=== PATIENT | female | born 1975 | race Two or more races ===

== ENCOUNTER 2016-04-13 10:56 | Emergency (ER) | payer OTHER ==
[2016-04-13 11:24] VITALS: BP 137/71
[2016-04-13] MEDS ORDERED: Ketorolac INJ* 30 MG/ML 1 ML VIAL IV PUSH ONE (11:52)
--- NOTE | 2016-04-13 12:50 | RAD ---
CLINICAL HISTORY: Low back pain with dysuria, left-sided radiculopathy COMPARISON: None TECHNIQUE: Multiple contiguous axial CT scans were obtained of the abdomen and pelvis, without intravenous contrast enhancement. Coronal and sagittal multiplanar reformations are submitted for review. Oral contrast was not administered. FINDINGS: The study is limited by the lack of intravenous contrast. This limits evaluation of the solid organs and vasculature. LUNG BASES: The lung bases are clear. LIVER: The liver is normal in shape, size, contour, and attenuation. BILE DUCTS: There is no intrahepatic or extrahepatic biliary dilatation. GALLBLADDER: The gallbladder is normal, without pericholecystic inflammatory change. PANCREAS: The pancreas is normal, without mass or ductal dilatation. SPLEEN: Normal in size and appearance. UPPER GI TRACT: Evaluation of the gastrointestinal tract is limited by incomplete gastric distention. The upper GI tract is unremarkable. SMALL BOWEL AND MESENTERY: The small bowel is normal in contour, course, and caliber. There is no obstruction or dilatation. COLON: The colon is normal in contour, course, caliber. There is no pericolonic inflammatory change. ADRENALS: Normal bilaterally. KIDNEYS: There is a 0.2 cm calculus in the left hemipelvis that is either within or adjacent to the distal left ureter at the UVJ. There is no appreciable hydronephrosis. This is best seen on axial image 158 and coronal image 63. BLADDER: The bladder is smooth in contour. PELVIC ORGANS: The uterus is somewhat bulky suggestive of fibroids. AORTA: The aorta is normal. IVC: Unremarkable LYMPH NODES: There is no lymphadenopathy by size criteria. ABDOMINAL WALL: There is no evidence for abdominal wall hernia. BONES AND SOFT TISSUES: The alignment is normal. Vertebral bodies are preserved in height. There is mild anterolateral marginal osteophyte formation. The joints are unremarkable without subluxation or dislocation. There is mild diffuse loss of intervertebral disc height. Incidentally noted is a dysraphic defect opposite of S1. There is no significant osseous neural foraminal narrowing or central canal stenosis. OTHER: None IMPRESSION: 1. QUESTIONABLE DISTAL LEFT URETERAL CALCULUS WITHOUT HYDRONEPHROSIS. 2. MILD DEGENERATIVE CHANGES WITHOUT SIGNIFICANT NEURAL FORAMINAL NARROWING OR CENTRAL CANAL STENOSIS. 3. BULKY UTERUS SUGGESTIVE OF FIBROIDS
[2016-04-13] MEDS ORDERED: NS 0.9% 1000 ML* 1,000 ML IV ONE (12:58)
[2016-04-13 13:20] LABS: Hematocrit 39 % (35-47); Hemoglobin 12.9 g/dl (12.0-16.0); Mean Corpuscular HGB Conc 33 g/dl (31-36); Mean Corpuscular Hemoglobin 30 pg (27-31); Mean Corpuscular Volume 90 fL (80-97); Mean Platelet Volume 10 um3 (7.4-10.4); Red Blood Count 4.33 10^6/ul (4.0-5.4); Red Cell Distribution Width 14 % (10.5-15); White Blood Count 6.2 10^3/ul (3.5-10.8)
[2016-04-13 13:26] LABS: Urine Bacteria Absent (Absent); Urine Bilirubin Negative (Negative); Urine Glucose Negative (Negative); Urine Nitrite Negative (Negative)
[2016-04-13 13:39] LABS: ALT 18 U/L (7-52); AST 14 U/L (13-39); Alkaline Phosphatase 48 U/L (34-104); Anion Gap 2 mmol/L (2-11); BUN/Creatinine Ratio 18.9 (8-20); Blood Urea Nitrogen 10 mg/dL (6-24); C Reactive Protein 1.48 mg/L (< 5.00); CO2 Carbon Dioxide 26 mmol/L (22-32); Calcium 9.5 mg/dL (8.6-10.3); Chloride 104 mmol/L (101-111); EGFR African American 164.3 (>60); EGFR Non-African American 127.8 (>60); Globulin 3.1 g/dL (2-4); Glucose 90 mg/dL (70-100); Potassium 3.4 mmol/L (3.5-5.0); Sodium 132 mmol/L (133-145); Total Protein 7.1 g/dL (6.4-8.9)
--- NOTE | 2016-04-13 14:18 | ED ---
Back Pain - HPI Summary HPI Summary: Pt here w/ acute LBP x 1 week. Bent down to get something from a low cupboard and felt a pulling/strain. Has had pain since - not improving w/ tylenol, ibuprofen and muscle relaxers - has not taken anything today. Pain is worse w/ all back movements - moving slowly. Pain radiates down into Lt buttock and behind knee when walking at times - denies numbness, tingling, weakness. No change in bowel/bladder habits. Has had issues w/ her back in the past - had lumbar XR in 12/2015 and 01/2016 - both reveal lumbar "straightening" w/o DDD. She also reports dysuria past few days. No urinary urgency, frequency or danielle hematuria. No known h/o kidney stones - does not drink much water - does not drink caffeine. Mom w/ h/o kidney stones - having surgery for this now. Pt further reports h/o fibroids in uterus. She follows w/ EMS DRIVER. Has had surgical removal of some fibroids and ablation for menorrhagia - seems to be worse instead of better. Has f/u w/ EMS DRIVER for this issue - not an acute concern today. w/o complicaions. Denies fever, chills, N/V/D, skin changes, chest pain, SOB, LE edema. - History of Current Complaint Chief Complaint: EDBackInjuryPain Stated Complaint: LOWER BACK PAIN Time Seen by Provider: 04/13/16 11:39 Hx Obtained From: Patient Hx Last Menstrual Period: End of May Pain Intensity: 7 - Allergies/Home Medications Allergies/Adverse Reactions: Allergies Allergy/AdvReac Type Severity Reaction Status Date / Time No Known Allergies Allergy Verified 03/09/16 08:59 PMH/Surg Hx/FS Hx/Imm Hx Previously Healthy: Yes Endocrine/Hematology History: Reports: Hx Anemia - STOP TAKING MEDS TWO WEEKS AGO, SEE BELOW Denies: Hx Diabetes Cardiovascular History: Denies: Hx Hypertension, Hx Pacemaker/ICD Respiratory History: Reports: Hx Asthma - PRN INHALER - HAVE NOT USED FOR AWHILE History: Reports: Other Problems/Disorders - Hx of fibroids Denies: Hx Kidney Infection, Hx Kidney Stones, Hx Renal Disease Musculoskeletal History: Reports: Hx Back Problems - intermittent, recurrent LBP Sensory History: Denies: Hx Contacts or Glasses, Hx Hearing Aid Opthamlomology History: Denies: Hx Contacts or Glasses Neurological History: Denies: Other Neuro Impairments/Disorders Psychiatric History: Denies: Hx Panic Disorder - Cancer History Hx Chemotherapy: No Hx Radiation Therapy: No - Surgical History Surgery Procedure, Year, and Place: Tubal Ligation. Cyst Removal, Ovary. Tummy Tuck. appendix. CERVIX - FIBROIDS REMOVED Hx Anesthesia Reactions: No Infectious Disease History: Yes Infectious Disease History: Reports: Hx Hepatitis - A Denies: Hx Shingles, Hx Tuberculosis, Traveled Outside the [place] in Last 30 Days - Family History Known Family History: Positive: Hypertension - Parents Family History: FHx of CVA - Social History Occupation: Unemployed Lives: With Family - daughter Alcohol Use: None Alcohol Amount: no ETOH in 2 yrs as of 04/13/2016 Hx Substance Use: No Substance Use Type: Reports: None Hx Tobacco Use: No Smoking Status (MU): Never Smoked Tobacco Have You Smoked in the Last Year: No Review of Systems Constitutional: Negative Negative: Fever, Chills Cardiovascular: Negative Respiratory: Negative Gastrointestinal: Other - see HPI Positive: see HPI Musculoskeletal: Other - see HPI Negative: Rash, Bruising Neurological: Negative Psychological: Normal - concerned All Other Systems Reviewed And Are Negative: Yes Physical Exam Triage Information Reviewed: Yes Vital Signs On Initial Exam: Initial Vitals Temp Pulse Resp BP Pulse Ox 97.5 F 53 16 134/82 100 04/13/16 10:58 04/13/16 10:58 04/13/16 10:58 04/13/16 10:58 04/13/16 10:58 Vital Signs Reviewed: Yes Appearance: Positive: Well-Appearing, Well-Nourished, Pain Distress - mild while sitting in recliner chair Skin: Positive: Warm, Dry - no erythema, no ecchymosis over affected area Head/Face: Positive: Normal Head/Face Inspection Eyes: Positive: Normal, EOMI, Conjunctiva Clear - anicteric ENT: Positive: Hearing grossly normal, Pharynx normal - mucosa moist Neck: Positive: Supple Respiratory/Lung Sounds: Positive: Clear to Auscultation, Breath Sounds Present. Negative: Rales, Rhonchi, Wheezes Cardiovascular: Positive: Normal, RRR, Pulses are Symmetrical in both Upper and Lower Extremities, S1, S2. Negative: Leg Edema Left, Leg Edema Right Abdomen Description: Positive: No Organomegaly, Soft, CVA Tenderness (L), Other : - mild Lt side and LLQ TTP - no rebounding. Negative: CVA Tenderness (R) Bowel Sounds: Positive: Present Musculoskeletal: Positive: Strength/ROM Intact, Other - + SLR on Lt (mild); spinous pp NTTP Neurological: Positive: Normal, Sensory/Motor Intact, Alert, Oriented to Person Place, Time, CN Intact II-III Psychiatric: Positive: Normal - [place] Coma Scale Coma Scale Total: 15 Diagnostics - Vital Signs Vital Signs Temp Pulse Resp BP Pulse Ox 04/13/16 13:12 97.9 F 82 18 137/71 100 04/13/16 13:10 97.7 F 82 18 137/71 100 04/13/16 11:24 97.9 F 82 18 137/71 100 04/13/16 10:58 97.5 F 53 16 134/82 100 - Laboratory Lab Results: Lab Results 04/13/16 04/13/16 04/13/16 Range/Units 13:10 13:10 13:10 WBC 6.2 (3.5-10.8) 10^3/ul RBC 4.33 (4.0-5.4) 10^6/ul Hgb 12.9 (12.0-16.0) g/dl Hct 39 (35-47) % MCV 90 (80-97) fL MCH 30 (27-31) pg MCHC 33 (31-36) g/dl RDW 14 (10.5-15) % Plt Count 219 (150-450) 10^3/ul MPV 10 (7.4-10.4) um3 Neut % (Auto) 52.9 (38-83) % Lymph % (Auto) 38.3 (25-47) % [place] % (Auto) 7.1 (1-9) % Eos % (Auto) 1.3 (0-6) % Baso % (Auto) 0.4 (0-2) % Absolute Neuts (auto) 3.3 (1.5-7.7) 10^3/ul Absolute Lymphs (auto) 2.4 (1.0-4.8) 10^3/ul Absolute Monos (auto) 0.4 (0-0.8) 10^3/ul Absolute Eos (auto) 0.1 (0-0.6) 10^3/ul Absolute Basos (auto) 0 (0-0.2) 10^3/ul Absolute Nucleated RBC 0.01 10^3/ul Nucleated RBC % 0.1 Sodium 132 L (133-145) mmol/L Potassium 3.4 L (3.5-5.0) mmol/L Chloride 104 (101-111) mmol/L Carbon Dioxide 26 (22-32) mmol/L Anion Gap 2 (2-11) mmol/L BUN 10 (6-24) mg/dL Creatinine 0.53 (0.51-0.95) mg/dL Est GFR ( Amer) 164.3 (>60) Est GFR (Non-Af Amer) 127.8 (>60) BUN/Creatinine Ratio 18.9 (8-20) Glucose 90 (70-100) mg/dL Lactic Acid (0.5-2.0) mmol/L Calcium 9.5 (8.6-10.3) mg/dL Total Bilirubin 0.40 (0.2-1.0) mg/dL AST 14 (13-39) U/L ALT 18 (7-52) U/L Alkaline Phosphatase 48 (34-104) U/L C-Reactive Protein 1.48 (< 5.00) mg/L Total Protein 7.1 (6.4-8.9) g/dL Albumin 4.0 (3.2-5.2) g/dL Globulin 3.1 (2-4) g/dL Albumin/Globulin Ratio 1.3 (1-3) Beta HCG, Quant < 0.60 mIU/mL Urine Color Yellow Urine Appearance Cloudy Urine pH 5.0 (5-9) Ur Specific [place] 1.024 (1.010-1.030) Urine Protein Negative (Negative) Urine Ketones Negative (Negative) Urine Blood Negative (Negative) Urine Nitrate Negative (Negative) Urine Bilirubin Negative (Negative) Urine Urobilinogen Negative (Negative) Ur Leukocyte Esterase 3+ H (Negative) Urine WBC (Auto) 1+(6-10/hpf) H (Absent) Urine RBC (Auto) Absent (Absent) Ur Squamous Epith Cells Present H (Absent) Urine Bacteria Absent (Absent) Urine Glucose Negative (Negative) 04/13/16 Range/Units 13:10 WBC (3.5-10.8) 10^3/ul RBC (4.0-5.4) 10^6/ul Hgb (12.0-16.0) g/dl Hct (35-47) % MCV (80-97) fL MCH (27-31) pg MCHC (31-36) g/dl RDW (10.5-15) % Plt Count (150-450) 10^3/ul MPV (7.4-10.4) um3 Neut % (Auto) (38-83) % Lymph % (Auto) (25-47) % [place] % (Auto) (1-9) % Eos % (Auto) (0-6) % Baso % (Auto) (0-2) % Absolute Neuts (auto) (1.5-7.7) 10^3/ul Absolute Lymphs (auto) (1.0-4.8) 10^3/ul Absolute Monos (auto) (0-0.8) 10^3/ul Absolute Eos (auto) (0-0.6) 10^3/ul Absolute Basos (auto) (0-0.2) 10^3/ul Absolute Nucleated RBC 10^3/ul Nucleated RBC % Sodium (133-145) mmol/L Potassium (3.5-5.0) mmol/L Chloride (101-111) mmol/L Carbon Dioxide (22-32) mmol/L Anion Gap (2-11) mmol/L BUN (6-24) mg/dL Creatinine (0.51-0.95) mg/dL Est GFR ( Amer) (>60) Est GFR (Non-Af Amer) (>60) BUN/Creatinine Ratio (8-20) Glucose (70-100) mg/dL Lactic Acid 0.9 (0.5-2.0) mmol/L Calcium (8.6-10.3) mg/dL Total Bilirubin (0.2-1.0) mg/dL AST (13-39) U/L ALT (7-52) U/L Alkaline Phosphatase (34-104) U/L C-Reactive Protein (< 5.00) mg/L Total Protein (6.4-8.9) g/dL Albumin (3.2-5.2) g/dL Globulin (2-4) g/dL Albumin/Globulin Ratio (1-3) Beta HCG, Quant mIU/mL Urine Color Urine Appearance Urine pH (5-9) Ur Specific [place] (1.010-1.030) Urine Protein (Negative) Urine Ketones (Negative) Urine Blood (Negative) Urine Nitrate (Negative) Urine Bilirubin (Negative) Urine Urobilinogen (Negative) Ur Leukocyte Esterase (Negative) Urine WBC (Auto) (Absent) Urine RBC (Auto) (Absent) Ur Squamous Epith Cells (Absent) Urine Bacteria (Absent) Urine Glucose (Negative) Result Diagrams: 04/13/16 13:10 04/13/16 13:10 Lab Statement: Any lab studies that have been ordered have been reviewed, and results considered in the medical decision making process. Re-Evaluation - Re-Evaluation First Eval Change: Improved - s/p IV toradol and IVF Back Pain Course/Dx - Diagnoses Provider Diagnoses: Kidney stone on left side, Lumbar radiculopathy Discharge - Discharge Plan Condition: Stable Disposition: HOME Prescriptions: Ibuprofen TAB* [Motrin TAB* 600 MG] 600 mg PO Q6H PRN #20 tab PRN Reason: Pain Metaxalone TAB* [Skelaxin TAB*] 800 mg PO TID #9 tab Phenazopyridine TAB* [Pyridium TAB*] 200 mdi PO TID #6 tab Tamsulosin CAP* [Flomax CAP*] 0.4 mg PO DAILY #3 cap Patient Education Materials: Kidney Stones (ED), Lumbar Radiculopathy (ED) Referrals: Emili Monte MD [Primary Care Provider] - Additional Instructions: Drink plenty of fluids and strain urine until stone passes - return specimen to PCP for testing You may take ibuprofen and pyridium for pain - pyridium may change urine bright orange - this is normal You may also use heat packs on your back/abdomen for pain as well as hot bath You may take muscle relaxers before bed to help you sleep as these cause drowsiness Follow-up with your PCP this week. *If you develop fever, chills, incontinence of urine/BM, numbness or weakness, return to ED
== END 2016-04-13 15:00 | disposition home or self-care (01) ==
LOC: ED 10:56
DX: N20.0 Calculus of kidney (principal); M54.15 Radiculopathy, thoracolumbar region
CPT/HCPCS: 36415; 72131; 74176; 80053; 81003; 81015; 83605; 84702; 85025; 86140; 87086; 99283; J1885

== ENCOUNTER 2016-07-26 18:21 | Emergency (ER) | payer SELFPAY ==
[2016-07-26] MEDS ORDERED: Morphine INJ* 4 MG/ML 1 ML SYRINGE IV ONE (19:39)
[2016-07-26] MEDS ORDERED: NS 0.9% 1000 ML* 1,000 ML IV ONE (19:39)
[2016-07-26] MEDS ORDERED: Ondansetron INJ* 2 MG/ML VIAL IV ONE (19:39)
[2016-07-26 20:10] LABS: Hematocrit 37 % (35-47); Hemoglobin 12.5 g/dl (12.0-16.0); Mean Corpuscular HGB Conc 33 g/dl (31-36); Mean Corpuscular Hemoglobin 30 pg (27-31); Mean Corpuscular Volume 91 fL (80-97); Mean Platelet Volume 10 um3 (7.4-10.4); Red Blood Count 4.12 10^6/ul (4.0-5.4); Red Cell Distribution Width 13 % (10.5-15); White Blood Count 8.7 10^3/ul (3.5-10.8)
[2016-07-26 20:25] LABS: ALT 20 U/L (7-52); AST 16 U/L (13-39); Alkaline Phosphatase 46 U/L (34-104); Anion Gap 6 mmol/L (2-11); BUN/Creatinine Ratio 21.1 (8-20); Blood Urea Nitrogen 12 mg/dL (6-24); CO2 Carbon Dioxide 22 mmol/L (22-32); Calcium 9.2 mg/dL (8.6-10.3); Chloride 107 mmol/L (101-111); EGFR African American 151.1 (>60); EGFR Non-African American 117.5 (>60); Globulin 2.8 g/dL (2-4); Glucose 117 mg/dL (70-100); Potassium 3.5 mmol/L (3.5-5.0); Sodium 135 mmol/L (133-145); Total Protein 6.8 g/dL (6.4-8.9)
[2016-07-26] MEDS ORDERED: Iohexol 300* (CONTRAST) 10 ML SDV IV ONE (20:27)
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
[2016-07-26] MEDS ORDERED: HYDROcodone/ACETAMIN 5-325 MG* 1 TAB PO ONE (21:23)
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
[2016-07-26 22:04] VITALS: BP 142/73
== END 2016-07-26 22:06 | disposition home or self-care (01) ==
LOC: ED 18:21
DX: S06.0X9A Concussion with loss of consciousness of unspecified duration, initial encounter (principal); S16.1XXA Strain of muscle, fascia and tendon at neck level, initial encounter; V47.0XXA Car driver injured in collision with fixed or stationary object in nontraffic accident, initial encounter; Y93.89 Activity, other specified; Y92.481 Parking lot as the place of occurrence of the external cause; Z32.02 Encounter for pregnancy test, result negative; D64.9 Anemia, unspecified; J45.909 Unspecified asthma, uncomplicated
CPT/HCPCS: 36415; 70450; 71260; 72125; 74177; 80053; 83605; 84702; 85025; 93005; 96361; 96374; 96375; 99283; J2270; J2405; Q9967

== ENCOUNTER 2016-09-13 18:48 | Emergency (ER) | payer OTHER ==
[2016-09-13 20:59] VITALS: BP 139/76
== END 2016-09-13 20:50 | disposition left against medical advice (07) ==
LOC: ED 18:48
DX: R21 Rash and other nonspecific skin eruption (principal); Z53.21 Procedure and treatment not carried out due to patient leaving prior to being seen by health care provider

== ENCOUNTER 2017-02-24 21:05 | Emergency (ER) | payer OTHER ==
[2017-02-24] MEDS ORDERED: Ibuprofen TAB* 800 MG PO ONE (21:35)
[2017-02-24] MEDS ORDERED: ALPRAZolam TAB* 0.5 MG PO ONE (21:35)
[2017-02-24 22:27] VITALS: BP 123/68
--- NOTE | 2017-02-24 22:41 | ED ---
Jose Granados Nikita, scribyordy for Patsy Zamora MD on 02/24/17 at 2152 . Asthma - HPI Summary HPI Summary: This patient is a 41 year old F presenting to [facility] with a chief complaint of asthma attack since 2100 today. Patient is allergic to cats and was exposed to cat fur while cleaning, her asthma "acted up". The patient reports the pain 4/ 10 in severity. Symptoms aggravated by nothing. Symptoms alleviated by nothing ( patient used inhaler and nasal spray s/p exposure with no relief). She reports coughing. - History of Current Complaint Chief Complaint: EDAsthma Stated Complaint: DIFFICULTY BREATHING Time Seen by Provider: 02/24/17 21:30 Hx Obtained From: Patient Hx Last Menstrual Period: End of May Onset/Duration: Sudden Onset, Lasting Hours, Still Present Timing: Constant Current Severity: Moderate Pain Intensity: 4 Pain Scale Used: 0-10 Numeric Aggravating Symptoms: Nothing Alleviating Symptoms: Nothing - Inhaler and nasal spray did not alleviate symptoms. Associated Signs and Symptoms: Positive: Other - coughing - Allergy/Home Medications Allergies/Adverse Reactions: Allergies Allergy/AdvReac Type Severity Reaction Status Date / Time No Known Allergies Allergy Verified 03/09/16 08:59 PMH/Surg Hx/FS Hx/Imm Hx Endocrine/Hematology History: Reports: Hx Anemia - STOP TAKING MEDS TWO WEEKS AGO, SEE BELOW Denies: Hx Diabetes Cardiovascular History: Denies: Hx Hypertension, Hx Pacemaker/ICD Respiratory History: Reports: Hx Asthma - PRN INHALER - HAVE NOT USED FOR AWHILE History: Reports: Other Problems/Disorders - Hx of fibroids Denies: Hx Kidney Infection, Hx Kidney Stones, Hx Renal Disease Musculoskeletal History: Reports: Hx Back Problems - intermittent, recurrent LBP Sensory History: Denies: Hx Contacts or Glasses, Hx Hearing Aid Opthamlomology History: Denies: Hx Contacts or Glasses Neurological History: Denies: Other Neuro Impairments/Disorders Psychiatric History: Denies: Hx Panic Disorder - Cancer History Hx Chemotherapy: No Hx Radiation Therapy: No - Surgical History Surgery Procedure, Year, and Place: Tubal Ligation. Cyst Removal, Ovary. Tummy Tuck. appendix. CERVIX - FIBROIDS REMOVED Hx Anesthesia Reactions: No - Immunization History Date of Influenza Vaccine: 11/2016 Infectious Disease History: No Infectious Disease History: Reports: Hx Hepatitis - A Denies: Hx Shingles, Hx Tuberculosis, Traveled Outside the [place] in Last 30 Days - Family History Known Family History: Positive: Hypertension - Parents Family History: FHx of CVA - Social History Alcohol Use: None Alcohol Amount: no ETOH in 2 yrs as of 04/13/2016 Hx Substance Use: No Substance Use Type: Reports: None Hx Tobacco Use: No Smoking Status (MU): Never Smoked Tobacco Have You Smoked in the Last Year: No Review of Systems Negative: Fever Positive: Cough, Other - Asthma symptoms All Other Systems Reviewed And Are Negative: Yes Physical Exam - Summary Physical Exam Summary: VITAL SIGNS: Reviewed. GENERAL: ~Patient is a well-developed and nourished female who is lying comfortable in the stretcher. Patient is not in any acute respiratory distress. HEAD AND FACE: No signs of trauma. No ecchymosis, hematomas or skull depressions. No sinus tenderness. EYES: PERRLA, EOMI x 2, No injected conjunctiva, no nystagmus. EARS: Hearing grossly intact. Ear canals and tympanic membranes are within normal limits. MOUTH: Oropharynx within normal limits. NECK: Supple, trachea is midline, no adenopathy, no JVD, no carotid bruit, no c- spine tenderness, neck with full ROM. CHEST: Symmetric, no tenderness at palpation LUNGS: Clear to auscultation bilaterally. No wheezing or crackles. CVS: Regular rate and rhythm, S1 and S2 present, no murmurs or gallops appreciated. ABDOMEN: Soft, non-tender. No signs of distention. No rebound no guarding, and no masses palpated. Bowel sounds are normal. EXTREMITIES: FROM in all major joints, no edema, no cyanosis or clubbing. NEURO: Alert and oriented x 3. No acute neurological deficits. Speech is normal and follows commands. SKIN: Dry and warm Triage Information Reviewed: Yes Vital Signs On Initial Exam: Initial Vitals Temp Pulse Resp BP Pulse Ox 97 F 84 28 138/82 99 02/24/17 21:07 02/24/17 21:07 02/24/17 21:07 02/24/17 21:07 02/24/17 21:07 Vital Signs Reviewed: Yes - Leah Coma Scale Coma Scale Total: 15 Diagnostics - Vital Signs Vital Signs Temp Pulse Resp BP Pulse Ox 02/24/17 21:35 20 02/24/17 21:30 70 121/104 99 02/24/17 21:28 72 100 02/24/17 21:27 121/106 02/24/17 21:20 70 100 02/24/17 21:19 74 100 02/24/17 21:07 97 F 84 28 138/82 99 - Laboratory Lab Statement: Any lab studies that have been ordered have been reviewed, and results considered in the medical decision making process. Asthma Course/Dx - Course Assessment/Plan: This patient is a 41 year old F presenting to [facility] with a chief complaint of asthma attack since 2100 today. On exam pt has clear lungs B /L with O2 sat 100% on RA.Pt has HX of anxiety.I think Pt's symptoms most likely due anxiety. Pt offered Xana and Motrin.Pt refused to take them. Pt D/ C home to F/U with PMD. - Diagnoses Differential Diagnosis/HQI/PQRI: Positive: Other - Anxiety Provider Diagnoses: Anxiety Discharge - Discharge Plan Condition: Stable Disposition: HOME Patient Education Materials: Anxiety (ED) Referrals: Emili Monte MD [Primary Care Provider] - 1 Day (Follow up with PCP in 1-2 days. ) Additional Instructions: RETURN TO EMERGENCY DEPARTMENT FOR ANY NEW OR WORSENING SYMPTOMS. The documentation as recorded by the Jose coto Nikita accurately reflects the service I personally performed and the decisions made by me, Patsy Zamora MD.
== END 2017-02-24 22:30 | disposition home or self-care (01) ==
LOC: ED 21:05
DX: F41.9 Anxiety disorder, unspecified (principal)
CPT/HCPCS: 99282; A9270-GY

== ENCOUNTER 2017-07-29 06:45 | Day surgery (SDC) | payer OTHER ==
[~2017-07-29 06:45] MED LIST: Buffered Lidocaine 0.9% SYRIN* 5 ML/SYR SYRINGE INTRADERM ONE; Dexamethasone IV* 4 MG/ML 1 ML (4 MG) IV SLOW PU ONE; Famotidine IV* 10 MG/ML 2 ML (20 mg) IV ONE
[2017-07-29] MEDS ORDERED: Dexamethasone IV* 4 MG/ML 1 ML (4 MG) ONE (06:57)
[2017-07-29] MEDS ORDERED: Famotidine IV* 10 MG/ML 2 ML (20 mg) ONE (06:57)
[2017-07-29] MEDS ORDERED: Midazolam* 1 MG/ML 2 ML VIAL (2 MG) ONE (07:28)
[2017-07-29] MEDS ORDERED: fentaNYL* 50 MCG/ML 2 ML VIAL (100 MCG VIAL) ONE (07:28)
[2017-07-29] MEDS ORDERED: Metoclopramide IV* 5 MG/ML 2 ML VIAL ONE (09:13)
[2017-07-29] MEDS ORDERED: Ketorolac INJ* 30 MG/ML 1 ML VIAL ONE (09:13)
[2017-07-29] MEDS ORDERED: Propofol* 10 MG/ML 20 ML BTL IV PUSH ONE (09:15)
[2017-07-29] MEDS ORDERED: Lidocaine 2% PF * 5 ML VIAL ONE (09:15)
[2017-07-29] MEDS ORDERED: Ondansetron ODT TAB* 4 MG PO PRN (09:32)
[2017-07-29] MEDS ORDERED: Naloxone* 0.4 MG/ML 1 ML VIAL IV PRN (09:32)
[2017-07-29 09:52] VITALS: BP 128/69
[2017-07-29] MEDS ORDERED: oxyCODONE/Acetamin 5/325 MG* TAB ONE (09:57)
--- NOTE | 2017-07-30 07:19 | OP ---
OPERATIVE REPORT: DATE OF OPERATION: 07/29/17 DATE OF : 75 SURGEON: Zachariah Sorenson MD ANESTHESIA: General, endotracheal tube. PRE-OP DIAGNOSES: Cervical stenosis and menorrhagia, dysmenorrhea. POST-OP DIAGNOSES: Cervical stenosis and menorrhagia, dysmenorrhea. OPERATIVE PROCEDURE: D and C, hysteroscopy, and endometrial ablation. ESTIMATED BLOOD LOSS: Minimal. SPECIMEN: Includes endometrium. FINDINGS: On exam under anesthesia, cervix had first-degree prolapse. Cervix, vagina, and vulva all appeared normal. On hysteroscopy, there was stenosis of the endocervical os requiring dilation from the Os Finder and a small Sal dilator up. On hysteroscopy in the cavity, there was normal tubal ost ia seen and no fibroids or polyps seen within the cavity. DESCRIPTION OF PROCEDURE: The patient was identified, procedure identified as a D and C, hysteroscop y, possible MyoSure, possible endometrial ablation. The patient was taken to the operating room, pre pped and draped in the usual fashion in dorsal lithotomy position under general anesthesia. Two sing le-tooth tenaculums were placed on the anterior lip of the cervix and an attempt was made to sound th e uterus, which was unsuccessful due to stenosis. The Os Finder was used to find the endocervical os . This was progressively dilated using the smaller Sal dilators starting from the smaller size up t o the normal size and able to progress up to a 30 Sal dilator. The sound was done to 8.5 cm. The e ndocervical os was found to be 3.5 based on a Hegar dilator making the cavity length 5. The hysteros cope was inserted and the above findings were noted. A sharp curette was inserted, sharp curettage w as performed until a gritty sensation was palpable. The NovaSure device was opened. The array was c hecked. The NovaSure device was placed within the uterine cavity and manipulated to a cavity width o f 4 cm. The NovaSure CO2 perforation test was performed and the device passed. Power setting of 110 . [address] ablation took place for 1 minute and 17 seconds. At the end of the procedure, the NovaSur e device was removed and the hysteroscope was reinserted and a good ablation was noted throughout the cavity and no perforations were noted. Good hemostasis was verified and the patient returned to wood very room in stable condition. All sponge and instrument counts were correct. [id number]/CPS #: [id number]
== END 2017-07-29 10:32 | disposition home or self-care (01) ==
LOC: OR 06:45
PROVIDERS: ATTEND Obstetrics & Gynecology
DX: N92.0 Excessive and frequent menstruation with regular cycle (principal); N94.6 Dysmenorrhea, unspecified; N88.2 Stricture and stenosis of cervix uteri
CPT/HCPCS: 88305; A9270-GY; J1100; J1885; J2250; J2704; J2765; J3010

== ENCOUNTER → 2018-04-10 16:20 | Emergency (ER) | payer OTHER ==
[~2018-04-10 16:20] MED LIST changes: -Buffered Lidocaine 0.9% SYRIN* 5 ML/SYR SYRINGE INTRADERM ONE; -Dexamethasone IV* 4 MG/ML 1 ML (4 MG) IV SLOW PU ONE; -Famotidine IV* 10 MG/ML 2 ML (20 mg) IV ONE; +NS 0.9% 1000 ML** 1,000 ML IV ONE; +Potassium Chlor TAB* 20 MEQ TAB.ER PO ONE
[2018-04-10 16:46] LABS: Hematocrit 40 % (35-47); Hemoglobin 13.8 g/dl (12.0-16.0); Mean Corpuscular HGB Conc 34 g/dl (31-36); Mean Corpuscular Hemoglobin 31 pg (27-31); Mean Corpuscular Volume 91 fL (80-97); Mean Platelet Volume 9.6 fL (7.4-10.4); Platelet Count 246 10^3/ul (150-450); Red Blood Count 4.43 10^6/ul (4.00-5.40); Red Cell Distribution Width 13 % (10.5-15); White Blood Count 4.2 10^3/ul (3.5-10.8)
--- NOTE | 2018-04-10 16:51 | ED ---
Neurological HPI - HPI Summary HPI Summary: Patient is a 42 y/o female brought in by EMS who presents to the ED c/o dizziness. At 15:00 today she suddenly became dizzy with a BLANCAS. Upon EMS arrival patient was found to be cold, diaphoretic, and mildly hypertensive. Upon arrival to the ED slurred speech was noted, but is now resolved. Her pain is rated a 6/10 in severity. PMHx TBI in 2003, HTN, anemia, fibromyalgia, and recent Lyme disease. Code Chidi called at 16:18. - History of Current Complaint Stated Complaint: WEAKNESS Hx Obtained From: Patient, EMS Hx Last Menstrual Period: End of May Onset/Duration: Sudden Onset, Started hours ago - 15:00 today, Still Present Timing: Constant Neurological Deficit Location: Generalized Pain Intensity: 6 Pain Scale Used: 0-10 Numeric Character: Dizzy, Impaired Speech Aggravating: Nothing Alleviating: Nothing Associated Signs and Symptoms: Positive: Headache - Allergy/Home Medications Allergies/Adverse Reactions: Allergies Allergy/AdvReac Type Severity Reaction Status Date / Time chemical fragrances Allergy asthma Uncoded 02/27/18 15:20 symptoms PMH/Surg Hx/FS Hx/Imm Hx Endocrine/Hematology History: Reports: Hx Anemia - STOP TAKING MEDS TWO WEEKS AGO, SEE BELOW Denies: Hx Diabetes Cardiovascular History: Reports: Hx Hypertension Denies: Hx Pacemaker/ICD Respiratory History: Reports: Hx Asthma - PRN INHALER - HAVE NOT USED FOR AWHILE History: Reports: Other Problems/Disorders - Hx of fibroids Denies: Hx Kidney Infection, Hx Kidney Stones, Hx Renal Disease Musculoskeletal History: Reports: Hx Back Problems - intermittent, recurrent LBP Sensory History: Denies: Hx Contacts or Glasses, Hx Hearing Aid Opthamlomology History: Denies: Hx Contacts or Glasses Neurological History: Reports: Hx Nerve Disease - fibromyalgia, Other Neuro Impairments/Disorders - TBI Psychiatric History: Reports: Hx Anxiety - NO MEDICATION FOR, Hx Depression - NO MEDICATION FOR Denies: Hx Panic Disorder - Cancer History Hx Chemotherapy: No Hx Radiation Therapy: No - Surgical History Surgery Procedure, Year, and Place: Tubal Ligation. Cyst Removal, Ovary. Tummy Tuck. appendix. CERVIX - FIBROIDS REMOVED Hx Anesthesia Reactions: No - Immunization History Date of Influenza Vaccine: 11/2016 Infectious Disease History: No Infectious Disease History: Reports: Hx Hepatitis - A Denies: Hx Shingles, Hx Tuberculosis, Traveled Outside the [place] in Last 30 Days - Family History Known Family History: Positive: Hypertension - Parents , Other - CVA - Social History Alcohol Use: None Alcohol Amount: no ETOH in 2 yrs as of 04/13/2016 Hx Substance Use: No Substance Use Type: Reports: None Hx Tobacco Use: No Smoking Status (MU): Never Smoked Tobacco Have You Smoked in the Last Year: No Review of Systems Positive: Skin Diaphoresis Neurological: Other - Dizziness Positive: Headache, Slurred Speech All Other Systems Reviewed And Are Negative: Yes Physical Exam - Summary Physical Exam Summary: VITAL SIGNS: Reviewed. GENERAL: Patient is a well-developed and nourished FEMALE who is lying comfortable in the stretcher.Patient is not in any acute respiratory distress. HEAD AND FACE: No signs of trauma. No ecchymosis, hematomas or skull depressions. No sinus tenderness. EYES: PERRLA, EOMI x 2, No injected conjunctiva, no nystagmus. No photophobia. EARS: Hearing grossly intact. Ear canals and tympanic membranes are within normal limits. MOUTH: Oropharynx within normal limits. NECK: Supple, trachea is midline, no adenopathy, no JVD, no carotid bruit, no c- spine tenderness, neck with full ROM. No meningeal signs, no Kernig's or brudzinskis signs. CHEST: Symmetric, no tenderness at palpation LUNGS: Clear to auscultation bilaterally. No wheezing or crackles. CVS: Regular rate and rhythm, S1 and S2 present, no murmurs or gallops appreciated. ABDOMEN: Soft, non-tender. No signs of distention. No rebound no guarding, and no masses palpated. Bowel sounds are normal. EXTREMITIES: FROM in all major joints, no edema, no cyanosis or clubbing. NEURO: Alert and oriented x 3. No acute neurological deficits. Speech is normal and follows commands. SKIN: Dry and warm GCS: 15 Triage Information Reviewed: Yes Vital Signs On Initial Exam: Initial Vitals Pulse Resp BP Pulse Ox 80 18 150/85 100 04/10/18 16:34 04/10/18 16:34 04/10/18 16:34 04/10/18 16:34 Vital Signs Reviewed: Yes Diagnostics - Vital Signs Vital Signs Temp Pulse Resp BP Pulse Ox 04/10/18 16:45 99.4 F 109 16 162/82 100 04/10/18 16:34 80 18 150/85 100 - Laboratory Lab Results: Lab Results 04/10/18 Range/Units 16:39 WBC 4.2 (3.5-10.8) 10^3/ul RBC 4.43 (4.00-5.40) 10^6/ul Hgb 13.8 (12.0-16.0) g/dl Hct 40 (35-47) % MCV 91 (80-97) fL MCH 31 (27-31) pg MCHC 34 (31-36) g/dl RDW 13 (10.5-15) % Plt Count 246 (150-450) 10^3/ul MPV 9.6 (7.4-10.4) fL Neut % (Auto) Pending Lymph % (Auto) Pending Sargent % (Auto) Pending Eos % (Auto) Pending Baso % (Auto) Pending Absolute Neuts (auto) Pending Absolute Lymphs (auto) Pending Absolute Monos (auto) Pending Absolute Eos (auto) Pending Absolute Basos (auto) Pending Absolute Nucleated RBC Pending Nucleated RBC % Pending Result Diagrams: 04/10/18 16:39 04/10/18 16:39 Lab Statement: Any lab studies that have been ordered have been reviewed, and results considered in the medical decision making process. - Radiology CXR Radiology Interpretation Completed By: Radiologist Summary of Radiographic Findings: NO ACTIVE CARDIOPULMONARY DISEASE IS NOTED. ED physician reviewed radiology report. - CT Brain CT CT Interpretation Completed By: Radiologist Summary of CT Findings: No intracranial mass or hemorrhage is noted. ED physician reviewed radiology report. - EKG 16:43 Cardiac Rate: NL - 87 bpm EKG Rhythm: Sinus Rhythm Summary of EKG Findings: No ST elevation NIH Scale - NIH Scale Level of Consciousness: Alert/Keenly Responsive Ask Patient the Month and His/Her Age: Both Correct Ask Pt to Open/Close Eyes and Firearms Sales Associate/Release Non-Paretic Hand: Both Correctly Best Gaze (Only Horizontal Eye Movement): Normal Visual Field Testing: No Visual Loss Facial Paresis-Pt to Smile & Close Eyes or Grimace Symmetry: Normal/Symmetrical Motor Function - Right Arm: No Drift-Holds 10 Seconds Motor Function - Left Arm: No Drift-Holds 10 Seconds Motor Function - Right Leg: No Drift-Holds 10 Seconds Motor Function - Left Leg: No Drift-Holds 10 Seconds Limb Ataxia-Must be out of Proportion to Weakness Present: Absent Sensory (Use Pinprick to Test Arms/Legs/Trunk/Face): Normal Best Language (Describe Picture, Name Items): No Aphasia Dysarthria (Read Several Words): Slurs Some Words Extinction and Inattention: No Abnormality Total Score: 1 Course/Dx - Course Assessment/Plan: This patient is a 42-year-old female who presents to the emergency department via ambulance with a chief complaint of dizziness, weakness headache and slight confusion. The ED a viridiana gracia was called by the primary nurse. When I arrived to see the patient the patient is able to speak in full sentences, she doesnt have any slurred speech, she is slightly diaphoretic and clammy, and the neurological exam is normal. The NIH score is equal to 1. And this is only because there is a history of slurred speech. At this time Dr. Chung from neurology assessed the patient and he requested to do a head CT immediately. The head CT is negative for an acute intercurrent pathology. Blood work without any significant abnormality, except for potassium level of 3.3, glucose 68, lactic acid is 2.7. The ED course and the patient was given IV fluids, the patient was given orange juice and the patient was able to eat and drink. At this point the patient is feeling better. She doesnt have any complaints. SYMPTOMS have resolved. Dr. Chung reports after his examination her symptoms are not a neurological problem, her symptoms may be secondary to the hypoglycemia. At this time the fingerstick is 110. All her symptoms have resolved. The patient was observed for a couple hours and the symptoms did not return. At this point I discussed all the findings and test results with the patient. She was instructed to return to the emergency room immediately if any of the symptoms return or worsens. They understand and agree. Neurological exam before discharge: Patient is alert and oriented x 3. No acute neurological deficits. Patient vital signs are stable. Patient is to follow up with CPP in the next 2 3 days. They understand and agree. Plan of care was discussed with the patient and patient understands and agrees with the plan of care. All questions were answered at patient satisfaction. There were no further complaints or concerns. - Diagnoses Provider Diagnoses: Hypoglycemia During the Visit The Following Alert/Code Occurred: Viridiana Murillo - Called at 16:18 - Physician Notifications Discussed Care Of Patient With: Johnson Chung Time Discussed With Above Provider: 16:20 Instructed by Provider To: Will See In ED - Dr. Chung is in the room for a consult. Discharge - Sign-Out/Discharge Documenting (check all that apply): Patient Departure - Discharge Patient Received Moderate/Deep Sedation with Procedure: No - Discharge Plan Condition: Improved Disposition: HOME Patient Education Materials: Non-diabetic Hypoglycemia (ED) Referrals: Alysa Gan MD [Primary Care Provider] - 3 Days Additional Instructions: FOLLOW UP WITH YOUR PRIMARY CARE PROVIDER WITHIN ONE WEEK FOR HIGH BLOOD PRESSURE NOTED TODAY. RETURN TO THE ED FOR ANY WORSENING OR NEW SYMPTOMS. - Billing Disposition and Condition Condition: IMPROVED Disposition: Home - Attestation Statements Document Initiated by Macy: Yes Documenting Scribe: Jazmin Shabazz Provider For Whom Lyssae is Documenting (Include Credential): Rich Nance MD Scribe Attestation: Jazmin Granados, scribed for Rich Nance MD on 04/10/18 at 2052. Scribe Documentation Reviewed: Yes Provider Attestation: The documentation as recorded by the Jazmin coto accurately reflects the service I personally performed and the decisions made by , Rich Nance MD Status of Scribe Document: Viewed
[2018-04-10 16:54] LABS: Activated Partial Thrombo Time 29.5 seconds (26.0-36.3); INR 0.97 (0.77-1.02)
[2018-04-10 17:03] LABS: Albumin 4.3 g/dL (3.2-5.2); Albumin/Globulin Ratio 1.7 (1-3); Calcium 9.2 mg/dL (8.6-10.3); EGFR African American 132.7 (>60); EGFR Non-African American 109.6 (>60); Globulin 2.6 g/dL (2-4); HDL Cholesterol 40.6 mg/dL; Potassium 3.3 mmol/L (3.5-5.0); Total Bilirubin 0.8 mg/dL (0.2-1.0); Total Protein 6.9 g/dL (6.4-8.9)
--- OUTSIDE RECORDS SUMMARY | 2018-04-10 17:06 | XMS REPORT | Continuity of Care Document ---
:1975 External Reference #:[id number] Author Name Lisa Uribe NP Address [address] [facility] [place] [address] Care Team Providers Name Role Phone Alysa Gan M.D. Care Team Information Manager Quantitative Unavailable Alysa Gan M.D. Primary Care Physician Unavailable Payers Date Identification Numbers Payment Provider Subscriber Policy Number: [id number] [employer] Rosa Bangura Group Name: [employer] [address] [address] PayID: [id number] [place] [address] Advance Directives Description No Information Available Problems Description No Information Family History Date Family Member(s) Observation Comments Father Alcoholism Father Heart Disease Father Cerebrovascular Accident (CVA) in 50s Father Smoker Mother Smoker quit Mother Dementia Mother Schizophrenia Children 2 healthy Siblings 3 2 sisters 1 brother Social History Type Date Description Comments Sex Unknown Education Currently Working [employer] Marital Status Not Lives With Daughter Lives With Mother 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 ETOH Use Denies alcohol use Tobacco Use Start: Unknown Patient has never smoked Recreational Drug Use Never Used Drugs Smoking Status Reviewed: 03/31/18 Patient has never smoked Currently Active Patient is currently sexually active Contraceptive Methods None tubal ligation Dom Violence Screen screening has been done feels safe at home and in community Free Text [place]oved [place] 12 from [place] Allergies, Adverse Reactions, Alerts Description No Known Drug Allergies Medications Medication Date Status Form Strength Qnty SIG Indications Ordering Provider Venlafaxine HCL Active Tablets 75mg 1 by mouth Unknown /0000 every day Cyanocobalamin Active Solution 1000mcg/M inject 1ml Unknown /0000 L intramuscularl y once a month Albuterol Active Aerosol 108(90Bas inhale two Unknown Sulfate HFA /0000 e) puffs by mouth mcg/Act every 4 hours as needed No Active 03/31 Hx Unknown Medications - 03/31 No Active 01/16 Hx Unknown Medications - 01/16 Blood Pressure 01/16 Hx 1unit take blood D51.8 Lisa Cuff s pressure as Yolanda - needed Uribe, 03/31 Prednisone 09/26 Hx Tablets 10mg 39tab 60 mg first M25.522 Lisa /2017 s day and taper Yolanda - down by 5mg Uribe, 01/16 (1/2 pill) per day for 12 days. No Active 06/10 Hx Unknown Medications /2017 - 09/26 Meloxicam 00 Hx Tablets 15mg 1 by mouth Unknown /0000 every day - 03/31 Immunizations Description No Information Available Vital Signs Date Vital Result Comment 03/31/2018 8:49am BP Systolic 120 mmHg BP Diastolic 80 mmHg Heart Rate 72 /min Body Temperature 98.0 F Respiratory Rate 18 /min Height 64 inches 5'4" Weight 185.00 lb BMI (Body Mass Index) 31.8 kg/m2 01/16/2018 5:57pm BP Systolic 124 mmHg BP Diastolic 78 mmHg Heart Rate 80 /min Body Temperature 98.3 F Respiratory Rate 16 /min Height 64 inches 5'4" Weight 189.00 lb BMI (Body Mass Index) 32.4 kg/m2 09/26/2017 8:33am BP Systolic 120 mmHg BP Diastolic 80 mmHg Heart Rate 68 /min Body Temperature 97.7 F Respiratory Rate 16 /min Height 64.75 inches 5'4.75" Weight 191.50 lb BMI (Body Mass Index) 32.1 kg/m2 06/10/2017 9:38am BP Systolic 120 mmHg BP Diastolic 76 mmHg Heart Rate 80 /min Body Temperature 97.3 F Respiratory Rate 16 /min Height 64.75 inches 5'4.75" Weight 181.00 lb BMI (Body Mass Index) 30.3 kg/m2 Results Test Date Facility Test Result H/L Range Note Laboratory test 03/31/2018 [facility] ([facility]) Iron <pending> 60-150 finding B12 <pending> 230-1050 Laboratory test 03/31/2018 [facility] Folates (Folic <pending> finding [address] Acid), [place] [address] (605)- - Laboratory test 03/21/2018 [facility] Clotest SEE RESULT 1 finding BELOW Laboratory test 03/21/2018 [facility] Surgical SEE RESULT 2 finding Pathology BELOW Rheumatoid 06/10/2017 [facility] Ra Latex <10.0 IU/mL 0.0-1 3 Arthritis Factor [address] [facility] Turbid. 3.9 ([facility]) [place] [address] (646)- - Laboratory test 06/10/2017 [facility] C-Reactive 5.3 mg/L High 0.0-4 finding [address] [facility] Protein, Quant .9 [place] [address] (857)- - Antinuclear Antibodies, Ifa Negative 4 Lyme AB/Western 06/10/2017 [facility] Lyme IgG/IgM <0.91 ISR 0.00-0.90 5 Blot Reflex [address] [place] [address] (865)- - Lyme Disease Ab, Quant, IgM <0.80 index 0.00-0.79 6 1 SEE RESULT BELOW Name: ROSA BANGURA : [address]: Caleb Nowak MD Acct: [id number] Unit: [id number] AGE: 42 Location: ENDO Re03/21/18 SEX: F Status: REG REF SPEC: [id number] VI: 03/21/18-[address]: Caleb Nowak MD REQ: [id number] RECD: 02/12/19-1321 STATUS: COMP OTHR DR: Alysa Gan MD _ SOURCE: GAS ANTRUM SPDES: ORDERED: Clotest Procedure Result Reported Site Clotest Final 03/21/18- 1726 ML Clotest Positive * ML - Main Lab . END OF REPORT DEPARTMENT OF PATHOLOGY, [address] [place] [address] Taye Daugherty M.D. Director [facility] # [id number] 2 SEE RESULT BELOW Name: ROSA BANGURA : [address]: Caleb Nowak MD Acct: [id number] Unit: [id number] AGE: 42 Location: ENDO Re03/21/18 SEX: F Status: REG REF SPEC: [id number] VI: 03/21/18-[address]: Caleb Nowak MD REQ: [id number] RECD: 03/21/18 STATUS: TAB LORD DR: Alysa Gan MD _ ORDERED: LEVEL 4 FINAL DIAGNOSIS Duodenum, third portion, biopsy: -- Benign small intestinal mucosa with no significant pathologic abnormalities. -- No evidence of villous blunting or increased intraepithelial lymphocytes. CLINICAL HISTORY Appetite - good; diet-week; weight - no change; usual bowel habit - every day PRE-OPERATIVE DIAGNOSIS Rule out Enteropathy POST-OPERATIVE DIAGNOSIS EGD: larynx - not seen; esophagus - normal esophagogastric junction 38 - 39, normal; stomach - prepyloric healing ulcer;, ROCHELLE test; duodenum - normal; conclusions: gastric ulcer - healing; duodenal erythema GROSS DESCRIPTION The specimen is received in formalin labeled, Third Portion Duodenum Biopsies , and consists of a 0.7 x 0.6 by up to 0.2 cm aggregate of tobin-pink irregular soft tissue fragments which is submitted entirely in one cassette. Signed by and Reported on: Swati Gusman MD 03/22/18 1027 END OF REPORT DEPARTMENT OF PATHOLOGY, [address] [place] [address] Taye Daugherty M.D. Director [facility] # [id number] 3 2sst 4 Negative <1:80 Borderline 1:80 Positive >1:80 5 Negative <0.91 Equivocal 0.91 - 1.09 Positive >1.09 6 Negative <0.80 Equivocal 0.80 - 1.19 Positive >1.19 IgM levels may peak at 3-6 weeks post infection, then gradually decline. Procedures Date Code Description Status 02/08/2018 [id number] Mammogram Completed 02/23/2016 [id number] Mammogram Completed Encounters Type Date Location Provider Dx Diagnosis Office Visit 01/16/2018 Main Office Lisa Uribe, Z00.00 Encntr for general 6:00p [employer] adult medical exam w/o abnormal findings Z13.220 Encounter for screening for lipoid disorders R48.0 Dyslexia and alexia Z12.31 Encntr screen mammogram for malignant neoplasm of breast R00.2 Palpitations Office Visit 09/26/2017 8:30a Main Office Lisa Uribe, M25.522 Pain in left [employer] elbow M25.521 Pain in right elbow A69.20 Lyme disease, unspecified R48.0 Dyslexia and alexia Office Visit 06/10/2017 9:30a Main Office Lisa Uribe, M25.522 Pain in left [employer] elbow M25.521 Pain in right elbow 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 A69.20 Lyme disease, unspecified Plan of Treatment 03/31/2018 - Lisa Uribe, NPR55 Syncope and collapseComments:Make sure you are drinking at least 8-10 glasses of water a dayReturn or seek medical care for the following: numbness or tingling of your extremitieschest painsevere headachechange in your visionchange in speech loss of consciousness Notify office if worsening symptoms or failure to improve.D51.8 Other vitamin B12 deficiency stgesmjP77.7 FibromyalgiaComments:Physical TherapyAllNew Medication:No Active Medications -Comments:~B_~U_Medication Management~b_~u_ Patient Understands medications he 's taking? Yes No Are there Barriers to Adherence? Yes No Has the patient been asked about herbal supplements and therapies, and OTC meds? Yes No ~B_~U_Care Plan~b_~ u_1. Patient has been queried about patient's goals/preferences and functional/ lifestyle goals at relevant visits. If relevant, describe: na2. Treatment goals as explained to the patient: above3. Are there barriers to meeting treatment goals? Yes No If Yes, please describe:4. Self-Management goals as described to the patient:Yes NoAs always, we strongly encourage a healthy diet and making physical activity a part of your every day life. If you have questions about how or where to start, please contact the office.
[2018-04-10 17:26] LABS: ABS Basophils 0 10^3/ul (0-0.2); ABS Eosinophils 0.1 10^3/ul (0-0.6); ABS Lymphocytes 1.5 10^3/ul (1.0-4.8); ABS Monocytes 0.5 10^3/ul (0-0.8); ABS Nucleated RBC 0 10^3/ul; Eosinophil % 1.8 %; Nucleated Red Blood Cells % 0.1
[2018-04-10 18:38] LABS: Urine Appearance Clear; Urine Bacteria Absent (Absent); Urine Bilirubin Negative (Negative); Urine Blood 1+ (Negative); Urine Color Yellow; Urine Glucose Negative (Negative); Urine Ketones Negative (Negative); Urine Nitrite Negative (Negative); Urine Protein Negative (Negative); Urine Red Blood Cell Trace(0-2/hpf) (Absent); Urine Specific Gravity 1.005 (1.010-1.030); Urine Squamous Epithelial Cell Present (Absent); Urine Urobilinogen Positive (Negative); Urine White Blood Cell Trace(0-5/hpf) (Absent)
--- NOTE | 2018-04-10 19:32 | CONS ---
NEUROLOGY CONSULTATION NOTE: DATE OF CONSULT: 04/10/18 - EMERGENCY DEPT CONSULTING PROVIDER: Dr. Nance. REASON FOR CONSULT: Activated code gracia for evaluation of headache and dizziness. CHIEF COMPLAINT: Generalized fatigue and dizziness. HISTORY OF PRESENT ILLNESS: Tiffanie Bangura is a 42-year-old right-handed female who has history of vitamin B12 deficiency, recurrent syncope, fibromyalgia, presumed Lyme disease, the etiology for the syncope is unclear, who presented to [facility] today for evaluation of feeling generalized malaise and dizziness. The dizziness was described as lightheadedness with associated symptoms of vertigo. The patient stated that she was in completely normal state of health this morning. The symptoms started after lunchtime today approximately at 1 p.m. She complained of headaches, bifrontal, associated with nausea, no vomiting and photo/ phonophobia. She has had headaches in the past. Her daughter suffers from migraine. The patient was found to have a blood glucose of 53 in the ED. No seizure activity was reported. NIH stroke scale is 0. PAST MEDICAL HISTORY: Dyspepsia, history of syncope, Lyme disease, and fibromyalgia. The patient has no history of hypertension or dyslipidemia. She does have a history of anxiety and takes venlafaxine. MEDICATIONS: 1. Multivitamins. 2. Albuterol inhaler. 3. Venlafaxine. 4. Cyanocobalamin 1000 mcg IM monthly. 5. Prednisone 10 mg p.o. daily. FAMILY HISTORY: Mother suffers from dementia. 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 She denied any tobacco or alcohol use. REVIEW OF SYSTEMS: A 14-point review of systems was obtained and otherwise negative except for what is mentioned in the HPI. PHYSICAL EXAMINATION: Vitals: Temperature of 99.0, pulse of 73, respiratory rate of 16, oxygen saturation of 98%, blood pressure of 139/82. General: Middle-aged appearing female, in no acute distress. She is emotional and crying. Head: Normocephalic, atraumatic. Eyes: Conjunctivae/cornea are clear. Neck is supple and symmetrical with no carotid bruit. Lungs are clear to auscultation bilaterally. Cardiovascular: Regular rate and rhythm with normal S1, S2. Skin: No skin lesions or lacerations. Psych: Affect is broad and normal mood. Easy to establish rapport. Neurological Examination: Mental Status: Awake, alert, and oriented to person, place, time, and general circumstances. There is no evidence of dysarthria or aphasia. Cranial Nerves: Normal confrontation testing bilaterally. Pupils are mid range and reactive to light. Extraocular muscles intact. Sensation is intact in the forehead, cheeks, and jaw region bilaterally. There is no facial droop. She is able to hear throughout the history process. She has symmetrical palatal elevation. She has normal strength against resistance. Tongue is symmetrical and midline with no atrophy or fasciculation. Motor Examination: No abnormal movements or pronator drift. 5/5 strength in the upper and lower extremities. Reflexes: Right/left, brachioradialis 2/2, biceps 2/2, triceps 2/2, patella 2/2, ankle 1/1 , plantar flexor/flexor. Sensation is intact to light touch throughout. Normal vibration and proprioception at the great toes. Coordination: Normal qgpoxh-cq-namy and rapid alternating movements. Gait and station were not assessed. DIAGNOSTIC STUDIES/LAB DATA: WBC 4.2, hemoglobin 13.8, hematocrit 40, platelet count of 246. INR is 0.97. Sodium of 137, potassium 3.3, chloride of 108, carbon dioxide of 20, glucose of 68 currently, lactic acid of 2.7. CT head without contrast showed no evidence of acute intracranial abnormality. ASSESSMENT AND RECOMMENDATIONS: Mrs. Tiffanie Bangura is a 42-year-old female who presented with generalized fatigue and dizziness. On examination, the patient has no focal neurological deficits. She was found to have glucose of 53 on Accu-Chek at bedside. Her symptoms seem to have improved with time. I do not suspect the diagnosis here is stroke or seizure. I recommend correcting her glucose, and if she continues to have neurological deficits, please reconsult Neurology. Please make sure we check her thyroid function and make sure she does not have hypothyroidism that could be a cause of her hypoglycemia. Defer further management to the primary team. TIME SPENT: Sixty minutes of which more than 50% was spent obtaining history, evaluating the patient, examining the patient, interpreting the CT head results , and acute stroke code gracia as well as discussing the treatment plan with the patient and the provider, Dr. Nance. [id number]/[facility] #: [id number] [facility]
[2018-04-10 19:43] VITALS: BP 132/87
== END | disposition home or self-care (01) ==
LOC: ED 16:20
DX: E16.2 Hypoglycemia, unspecified (principal); R51 Headache; R42 Dizziness and giddiness; R47.81 Slurred speech; J45.909 Unspecified asthma, uncomplicated; D51.9 Vitamin B12 deficiency anemia, unspecified; F41.9 Anxiety disorder, unspecified
CPT/HCPCS: 36415; 70450; 71045; 80053; 80061; 81003; 81015; 83605; 84484; 85025; 85610; 85730; 86850; 86900; 86901; 87086; 93005; 99284; A9270-GY

== ENCOUNTER 2018-04-24 14:08 | Emergency (ER) | payer OTHER ==
[2018-04-24 14:20] VITALS: BP 156/96
--- OUTSIDE RECORDS SUMMARY | 2018-04-24 14:27 | XMS REPORT | Continuity of Care Document ---
:1975 External Reference #:[id number] Author Name Alysa Gan M.D. Address [address] [place] [address] Care Team Providers Name Role Phone Alysa Gan M.D. 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 Primary Care Physician Unavailable Payers Date Identification Numbers Payment Provider Subscriber Policy Number: [id number] [employer] Rosa Bangura Group Name: [employer] [address] [address] PayID: [id number] [place] [address] Advance Directives Description No Information Available Problems Date Description Provider Status Onset: 04/17/2018 Vitamin B-complex deficiency Alysa Gan M.D. Active Onset: 04/17/2018 Anxiety state Alysa Gan M.D. Active Onset: 04/17/2018 Fibromyalgia Alysa Gan M.D. 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 ETOH Use Denies alcohol use Tobacco [...] [place] 12 [place] Allergies, Adverse Reactions, Alerts Description No Known Drug Allergies Medications Medication Date Status Form Strength Qnty SIG Indications Ordering Provider Venlafaxine HCL 00 Active Tablets 75mg 1 by mouth /0000 every day Cyanocobalamin 00 Active Solution 1000mcg/M inject 1ml Unknown L intramuscularl y once a month Albuterol Active Aerosol 108(90Bas inhale two Unknown Sulfate HF e) puffs by mouth mcg/Act every 4 hours as needed Ibuprofen Active Tablets 600mg 1 tab by mouth Unknown every 4 hours as needed pain. take with food Nausea Med Active Unknown Cymbalta Active Caps DR 30mg 1 by mouth bid Part No Active 03/31 Hx Unknown Medications /2018 - 03/31 No Active 01/16 Hx Unknown Medications /2017 - 01/16 Blood Pressure 01/16 Hx 1unit take blood D51.8 Lisa Cuff /2017 s pressure as Yolanda - needed Uribe, 03/31 Prednisone 09/26 Hx Tablets 10mg 39tab 60 mg first M25.522 Lisa /2017 s day and taper Yolanda - down by 5mg Uribe, 01/16 (1/2 pill) per day for 12 days. No Active 06/10 Hx Unknown Medications /2017 - 09/26 Meloxicam Hx Tablets 15mg 1 by mouth Unknown / every day - 03/31 Immunizations Description No Information Available Vital Signs Date Vital Result Comment 04/17/2018 3:44pm BP Systolic 116 mmHg BP Diastolic 60 mmHg Heart Rate 72 /min Body Temperature 97.7 F Respiratory Rate 16 /min Height 64 inches 5'4" Weight 182.25 lb BMI (Body Mass Index) 31.3 kg/m2 03/31/2018 8:49am BP Systolic 120 mmHg BP [...] Test Result H/L Range Note Laboratory test 04/10/2018 [facility] [place] Point of Care 110 mg/dL High 70-100 1 finding Glucose Inr/Protime 04/10/2018 [facility] Inr 0.97 N 0.77-1.02 Laboratory test 04/10/2018 [facility] Partial 29.5 seconds N 26.0-36.3 finding Thrombo Time PTT Lactic Acid 2.7 mmol/L High 0.5-2.0 2 Comp Metabolic Panel 04/10/2018 [facility] Sodium 137 mmol/L N 135-145 Potassium 3.3 mmol/L Low 3.5-5.0 Chloride 108 mmol/L N 101-111 Co2 Carbon Dioxide 20 mmol/L Low 22-32 Anion Gap 9 mmol/L N 2-11 Glucose 68 mg/dL Low 70-100 Blood Urea Nitrogen 9 mg/dL N 6-24 Creatinine 0.60 mg/dL N 0.51-0.95 BUN/Creatinine Ratio 15.0 N 8-20 Calcium 9.2 mg/dL N 8.6-10.3 Total Protein 6.9 g/dL N 6.4-8.9 Albumin 4.3 g/dL N 3.2-5.2 Globulin 2.6 g/dL N 2-4 Albumin/Globulin Ratio 1.7 N 1-3 Total Bilirubin 0.80 mg/dL N 0.2-1.0 Alkaline Phosphatase 53 U/L N 34-104 Alt 16 U/L N 7-52 Ast 17 U/L N 13-39 Egfr Non- 109.6 >60 Egfr 132.7 >60 3 Lipid Profile (Trig/Chol/HDL) 04/10/2018 [facility] Triglycerides 156 mg/dL 4 Cholesterol 179 mg/dL 5 HDL Cholesterol 40.6 mg/dL 6 LDL Cholesterol 107 mg/dL 7 Laboratory test finding 04/10/2018 [facility] Troponin I 0.00 ng/mL <0.04 8 Type & Screen 04/10/2018 [facility] Patient Blood Type O Positive Antibody Screen NEGATIVE CBC Auto Diff 04/10/2018 [facility] White Blood Count 4.2 10^3/uL N 3.5-10.8 Red Blood Count 4.43 10^6/uL N 4.00-5.40 Hemoglobin 13.8 g/dL N 12.0-16.0 Hematocrit 40 % N 35-47 Mean Corpuscular Volume 91 fL N 80-97 Mean Corpuscular Hemoglobin 31 pg N 27-31 Mean Corpuscular HGB Conc 34 g/dL N 31-36 Red Cell Distribution Width 13 % N 10.5-15 Platelet Count 246 10^3/uL N 150-450 Mean Platelet Volume 9.6 fL N 7.4-10.4 Abs Neutrophils 2.0 10^3/uL N 1.5-7.7 Abs Lymphocytes 1.5 10^3/uL N 1.0-4.8 Abs Monocytes 0.5 10^3/uL N 0-0.8 Abs Eosinophils 0.1 10^3/uL N 0-0.6 Abs Basophils 0 10^3/uL N 0-0.2 Abs Nucleated RBC 0 10^3/uL Granulocyte % 48.4 % Lymphocyte % 37.0 % Monocyte % 12.0 % Eosinophil % 1.8 % Basophil % 0.8 % Nucleated Red Blood Cells % 0.1 Laboratory test finding 04/10/2018 [facility] Point of Care Glucose 53 mg/dL Low 70-100 9 Urinalysis Profile 04/10/2018 [facility] Urine Color Yellow Urine Appearance Clear Urine Specific Tensed 1.005 Low 1.010-1.030 Urine pH 8.0 N 5-9 Urine Urobilinogen Positive Abnormal Negative Urine Ketones Negative Negative Urine Protein Negative Negative Urine Leukocytes Negative Negative Urine Blood 1+ Abnormal Negative Urine Nitrite Negative Negative Urine Bilirubin Negative Negative Urine Glucose Negative Negative Urine White Blood Cell Trace(0-5/hpf) Absent Urine Red Blood Cell Trace(0-2/hpf) Absent Urine Bacteria Absent Absent Urine Squamous Epithelial Cell Present Abnormal Absent Urine Culture And 04/10/2018 [facility] Urine Culture SEE RESULT 10 Sensitivities BELOW Laboratory test 03/31/2018 [facility] Folate (Folic 11.8 ng/mL >3.0 11, [address] Acid), [place] [address] [phone])- - CBC Electronic Fma 03/31/2018 Chu Shereen (Fma) WBC 8.7 x10^3/UL 4.0- 10 .0 RBC 4.51 x10^6/UL 3.93-6.00 HGB 13.9 g/dL 12.0-17.0 HCT 42 % 35-50 MCV 92.0 fL 80.0-95.0 MCH 30.8 pg 25.6-32.2 MCHC 33.5 g/dL 32.2-36.0 RDW-CV 12.5 % 11.6-14.4 PLT 242 x10^3/UL 163-400 MPV 11.6 fL 9.4-12.4 Josef# 6.39 x10^3/UL High 1.56-6.13 Lymph# 1.61 x10^3/UL 1.18-3.74 Pike# 0.63 x10^3/UL 0.24-0.82 Eos # 0.0 x10^3/UL 0.0-0.5 Baso # 0.02 x10^3/UL 0.01-0.08 Josef% 73.7 % High 34.0-70.0 Lymph % 18.5 % Low 20.0-52.0 Pike% 7.3 % 5.0-12.0 Eos% 0.1 % Low 0.7-7.0 Baso% 0.2 % 0.1-1.2 Laboratory test 03/31/2018 Chu Shereen (Fma) Serum Iron 58 g/dL Low 60-150 13 finding Vitamin B-12 154 pg/mL Low 230-1050 14 Laboratory test 03/21/2018 [facility] Clotest SEE RESULT 15 finding BELOW Laboratory test 03/21/2018 [facility] Surgical SEE RESULT 16 finding Pathology BELOW Rheumatoid 06/10/2017 [facility] Ra Latex Turbid. <10.0 IU/mL 0.0-13 17 Arthritis Factor [address] [facility] .[address] ([facility]) [place] [address] [phone] - Laboratory test 06/10/2017 [facility] C-Reactive 5.3 mg/L High 0.0-4. finding [address] Protein, Quant 9 [place] [address] [phone] - Antinuclear Antibodies, Ifa Negative 18 Lyme AB/Western 06/10/2017 [facility] Lyme IgG/IgM <0.91 ISR 0.00-0.90 19 Blot Reflex [address] [place] [address] [phone] - Lyme Disease Ab, Quant, IgM <0.80 index 0.00-0.79 20 1 Restoration Officer: [id number] Critical Result LACT:2.7 Called to [id number] at: 17:02:31 by:[id number] Read back by:[id number] [place] Severe Sepsis and Septic Shock Management Bundle Measure requires all lactic acids initially measuring >2.0 mmol/L be repeated. 3 Because ethnic data is not always readily available, this report includes an eGFR for both -Americans and non- Americans. The National Kidney Disease Education Program (NKDEP) does not endorse the use of the MDRD equation for patients that are not between the ages of 18 and 70, are , have extremes of body size, muscle mass, or nutritional status, or are non- or non-. According to the National Kidney Foundation, irrespective of diagnosis, the stage of the disease is based on the level of kidney function: Stage Description GFR(mL/min/1.73 m(2)) 1 Kidney damage with normal or decreased GFR 90 2 Kidney damage with mild decrease in GFR 60-89 3 Moderate decrease in GFR 30-59 4 Severe decrease in GFR 15-29 5 Kidney failure <15 (or dialysis) 4 Desirable: <150 Borderline High: 150-199 High: 200-499 Very High: >500 5 Desirable: <200 Borderline High: 200-239 High: >239 6 Low: <40 Desirable: 40-60 High: >60 7 Desirable: <100 Near Optimal: 100-129 Borderline High: 130-159 High: 160-189 Very High: >189 8 Troponin-I testing on Plasma Separator Tubes (PST) has a known false positive rate of 0.20-0.40%. All positive troponins reflex immediate secondary confirmatory testing. 9 Restoration Officer: [id number] 10 SEE RESULT BELOW Name: ROSA BANGURA : [address]: Rich Nance MD Acct: [id number] Unit: [id number] AGE: 42 Location: ED Re04/10/18 SEX: F Status: REG ER SPEC: [id number] VI: 04/10/[address]: Rich Nance MD REQ: [id number] RECD: 04/10/18 STATUS: DANTE LORD DR: Alysa Gan MD _ SOURCE: URINE SPDESC: ORDERED: Urine Culture Procedure Result Reported Site Urine Culture Final 04/11/18- 1607 ML No Growth (<1,000 CFU/mL) * ML - Main Lab . END OF REPORT DEPARTMENT OF PATHOLOGY, [address] [place] [address] Taye Daugherty M.D. Director [facility] # [id number] 11 12 A serum folate concentration of less than 3.1 ng/mL is considered to represent clinical deficiency. 13 RESULTS VERIFIED BY REPEAT ANALYSIS 14 RESULTS VERIFIED BY REPEAT ANALYSIS 15 SEE RESULT BELOW Name: ROSA BANGURA : [address]: Caleb Nowak MD Acct: [id number] Unit: [id number] AGE: 42 Location: ENDO Re03/21/18 SEX: F Status: REG REF SPEC: [id number] VI: 03/21/18-[address] [facility] [address]: Caleb Nowak MD REQ: [id number] RECD: 03/21/18-1321 STATUS: DANTE LORD DR: Alysa Gan MD _ SOURCE: GAS ANTRUM SPDESC: ORDERED: Clotest Procedure Result Reported Site Clotest Final 03/21/18- 172 ML Clotest Positive * ML - Main Lab . END OF REPORT DEPARTMENT OF PATHOLOGY, [address] [place] [address] Taye Daugherty M.D. Director [facility] # [id number] 16 SEE RESULT BELOW Name: ROSA BANGURA : [address]: Caleb Nowak MD Acct: [id number] Unit: [id number] AGE: 42 Location: ENDO Re03/21/18 SEX: F Status: REG REF SPEC: [id number] VI: 03/21/18-[address]: Caleb Nowak MD REQ: [id number] RECD: 03/21/18 STATUS: TAB LORD DR: Alysa [...] 1027 END OF REPORT DEPARTMENT OF PATHOLOGY, [address] [place] [address] Taye Daugherty M.D. Director [facility] # [id number] 17 2sst 18 Negative <1:80 Borderline 1:80 Positive >1:80 19 Negative <0.91 Equivocal 0.91 - 1.09 Positive >1.09 20 Negative <0.80 Equivocal 0.80 - 1.19 Positive >1.19 IgM levels may peak at 3-6 weeks post infection, then gradually decline. Procedures Date Code Description Status 02/08/2018 [id number] Mammogram Completed 02/23/2016 [id number] Mammogram Completed Encounters Type Date Location Provider Dx Diagnosis Office Visit 03/31/2018 Main Office Lisa Uribe, R55 Syncope and collapse 8:30a [employer] DEVELOPER D51.8 Other vitamin B12 deficiency anemias M79.7 Fibromyalgia Office Visit 01/16/2018 6:00p Main Office Lisa Guerrero Z00.00 Encntr for JUAN DAVID Uribe general adult medical exam w/o abnormal findings Z13.220 Encounter for screening for lipoid disorders R48.0 Dyslexia and alexia Z12.31 Encntr screen mammogram for malignant neoplasm of breast R00.2 Palpitations Office Visit 09/26/2017 8:30a Main Office Lisa Uribe, M25.522 Pain in left [employer] DEVELOPER elbow M25.521 Pain in right elbow A69.20 Lyme disease, unspecified R48.0 Dyslexia and alexia Office Visit 06/10/2017 9:30a Main Office Lisa Uribe, M25.522 Pain in left [employer]ELOPER elbow M25.521 Pain in right elbow 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 Yes No Are there Barriers to Adherence? Yes No Has the patient been asked about herbal supplements and therapies, and OTC meds? Yes No
--- OUTSIDE RECORDS SUMMARY | 2018-04-24 14:27 | XMS REPORT | Continuity of Care Document ---
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 Onset: 12/03/2016 Disturbance of consciousness Kiley Florez DNP, RN, Active 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/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 CLERK-BC Onset: 12/03/2016 Inadequate sleep hygiene Kiley Florez DNP, DAVID, Active WINDOW/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 CLERK-BC Onset: 02/21/2018 Drug-induced dyspepsia Kait Estrada NP Active Onset: 02/21/2018 Gastroesophageal reflux disease Kait Estrada NP Active Family History Date Family Member(s) Observation Comments General Cerebrovascular Accident (CVA) Father Hypertension Father Cerebrovascular Accident (CVA) Father Diabetes Mother Hypertension Mother Rheumatoid Arthritis Social History Type Date Description Comments Sex Unknown Marital Status Single Lives With 2019 Daughters 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 Tobacco Use Start: Unknown Never Smoked Cigarettes ETOH Use Denies alcohol use Tobacco Use Start: Unknown Patient has never smoked Recreational Drug Use Denies Drug Use Tobacco Use Start: Unknown Second hand smoke Parents smoked Smoking Status Reviewed: 04/17/18 Second hand smoke Parents smoked Exercise Type/Frequency Does not exercise Allergies, Adverse Reactions, Alerts Description No Known Drug Allergies Medications Medication Date Status Form Strength Qnty SIG Indications Ordering Provider Omeprazole 02/28/[address] 20mg 30tab 1 by Kait oneill mouth JUAN DAVID Estrada every day Dexilant 02/27/19 Active Capsules 60mg 30cap take one Kait oneill daily JUAN DAVID Estrada Venlafaxine HCL 02/16/19 Active Tablets 37.5mg 60tab take one M06.4 Odin Velasquez s capsule/t Talat, ablet M.D. daily by mouth for 1 week then 2 tabs daily ongoing Fluticasone 02/15/19 Active Suspension 50mcg/Act 16uni instill 1 Odin Propionate 19 ts spray Talat, each M.D. nostril every day BD 1ML 02/14/19 Active Misc 25G X 42uni for use Odin Syringe/Safetygl 19 5/8" 1 ML ts with b12 Talat, aracelis Shielding injection M.D. Needle 25G X s 06/14" Cyanocobalamin 12/21/19 Active Solution 1000mcg/M 30ml 1 Odin 18 L millilite Talat, rs M.D. intramusc ular b4etpyl x 12 months Tylenol 0000/00 Active Capsules 325mg 2 tablets Unknown 00 every 4 hours as needed for pain Lansoprazole/[place] 04/04/19 Hx Misc 14uni 1 pack Kait xicillin/Clar[place] 19 - ts per JUAN DAVID Estrada romycin 04/17/19 instructi 19 ons daily Lansoprazole 04/04/19 Hx Capsules 30mg 20cap 1 by Kait oneill mouth in JUAN DAVID Estrada 04/17/19 am and pm 19 before meals Amoxicillin/Clav 04/04/19 Hx Tablets ER 1000-62.5 20tab 2 tablets Kait ulanate 19 - 12HR mg s twice JUAN DAVID Estrada Potassium ER 04/04/19 daily for 19 10 days Clarithromycin 04/04/19 Hx Tablets 500mg 20tab 1 by Kait Estrada NP 04/17/19 twice a 19 day Amoxicillin 04/04/19 Hx Tablets 500mg 20tab 1 by Kait Ignacio s mouth JUAN DAVID Estrada 04/04/19 twice a 19 day x 10 days Amoxicillin 04/04/19 Hx Capsules 500mg 2 tablets Kait Velasquez - by mouth JUAN DAVID Estrada 04/17/19 two times 19 a day for 14 days for h-pylori treatment GNP Lansoprazole 02/27/19 Hx Capsules 15mg Kait 19 - DR Estrada, OFFICE SUPPORT ASSOCIATE 02/26/19 19 Prednisone 02/21/19 Hx Tablets 10mg 30tab take 4 Odin 19 - s tabs by Talat, 04/17/19 mouth M.D. 19 daily for 2 days then 3 tabs daily for 2 days then 2 tabs for 2 days then 1 tab for 2 days then d/c Nasonex 02/14/19 Hx Suspension 50mcg/Act 17gm use Odin Velasquez - intranasa Talat, 02/15/19 l daily M.D. 19 as needed Cymbalta 02/14/[address] 30mg 60cap 1 by M06.4 Odin 19 - Part s mouth Talat, 02/16/19 every day M.D. 19 for 1 week then 2 daily ongoing Meloxicam 12/09/19 Hx Tablets 7.5mg 30tab take one E06.9 Odin 18 - s tab twice Talat, 02/28/19 daily as M.D. 19 needed for pain, avoid other nsaids Fludrocortisone 12/11/19 Hx Tablets 0.1mg 90tab take 1 R55 Jamie S. Acetate 17 - s tablets Olea, 12/09/19 once DO FACC 18 daily. Fludrocortisone 12/03/19 Hx Tablets 0.1mg 30tab 1 by R55 Jamie S. Acetate 17 - s mouth Olea, 12/11/19 every day DO FACC 17 (pt started 12/09/16) Lupron Depot Hx Kit 3.75mg Unknown 00 - Unknown Iron Hx daily Unknown 00 - 11/27/19 17 Vitamin C Hx daily-spr Unknown 00 - adic 12/09/19 18 Vitamin D3 Hx daily-spo Unknown 00 - radic 12/09/19 18 Vitamin B12 Hx Daily-spo Unknown 00 - radic 12/09/19 18 Azelastine HCL Hx Solution 0.1% spray 2 Unknown (Nasal) 00 - spray in 12/09/19 each 18 nostril two times a day as needed Clindamycin Hx Lotion 1% apply as Unknown Phosphate 00 - directed 12/09/19 18 Colace Hx Capsules 100mg 1 tab by Unknown 00 - mouth 12/09/19 daily 18 Ferrex 150 Hx Capsules 150mg 1 by Unknown 00 - mouth 12/10/19 twice 17 every day x 90 days Ferrous Sulfate Hx Tablets 325(65Fe) 1 by Unknown 00 - mg mouth 12/09/19 twice a 18 day x 30 days Ibuprofen Hx Tablets 600mg 1 tab Unknown 00 - every 6-8 12/09/19 hours as 18 needed Doxycycline Hx Capsules 100mg 1 two Andi, Monohydrate 00 - times a [place], 02/03/20 day N.P. 17 Loratadine Hx Tablets 10mg 1 tab Andi, 00 - daily as [place], 12/09/19 needed N.P. 18 Fluoxetine HCL Hx Tablets 20mg 1 or 2 po Andi, 00 - daily [place], 12/09/19 N.P. 18 Buspirone HCL Hx Tablets 5mg 1 or 2 po Andi, 00 - daily [place], 12/09/19 N.P. 18 Ibuprofen Hx Tablets 200mg as needed E06.9 Unknown - 12/09/19 18 Medications Administered in Office Medication Date Status Form Strength Qnty SIG Indications Ordering Provider B-12 Injection Administered Injection Nurse Visit 018 B-12 Injection Administered Injection Nurse Visit 018 Immunizations CPT Code Status Date Vaccine Reaction Lot # [id number] Given 12/20/2017 Influenza Virus Vaccine, no immediate reaction [id number] Quadrivalent, Split, noted Preservative Free Vital Signs Date Vital Result Comment 04/17/2018 10:53am Height 65 inches 5'5" Weight 182.00 lb Heart Rate 73 /min BP Systolic 130 mmHg BP Diastolic 83 mmHg Respiratory Rate 20 /min Body Temperature 96.1 F O2 % BldC Oximetry 97 % BMI (Body Mass Index) 30.3 kg/m2 02/21/2018 10:48am Height 65 inches 5'5" Weight 192.12 lb Heart Rate 67 /min BP Systolic 132 mmHg BP Diastolic 84 mmHg Respiratory Rate 18 /min Body Temperature 97.2 F O2 % BldC Oximetry 97 % BMI (Body Mass Index) 32.0 kg/m2 02/14/2018 8:40am Height 65 inches 5'5" Weight 194.38 lb Heart Rate 62 /min BP Systolic 136 mmHg BP Diastolic 80 mmHg Pain Level 6 O2 % BldC Oximetry 96 % BMI (Body Mass Index) 32.3 kg/m2 12/08/2017 8:59am Height 65 inches 5'5" Weight 191.25 lb Heart Rate 69 /min BP Systolic Sitting 142 mmHg BP Diastolic Sitting 82 mmHg Pain Level 4 O2 % BldC Oximetry 98 % BMI (Body Mass Index) 31.8 kg/m2 02/02/2017 7:59am Height 65 inches 5'5" Weight 190.00 lb with boots and coat Heart Rate 70 /min BP Systolic Sitting 144 mmHg Rue reg cuff BP Diastolic Sitting 100 mmHg Rue reg cuff Respiratory Rate 16 /min O2 % BldC Oximetry 99 % On Ra BMI (Body Mass Index) 31.6 kg/m2 01/10/2017 1:46pm Height 65 inches 5'5" Weight 185.00 lb with shoes Heart Rate 68 /min BP Systolic Sitting 154 mmHg Lue reg cuff BP Diastolic Sitting 90 mmHg Lue reg cuff BP Systolic Standing 158 mmHg Lue reg cuff BP Diastolic Standing 98 mmHg Lue reg cuff BMI (Body Mass Index) 30.8 kg/m2 12/10/2016 1:03pm Height 65 inches 5'5" Weight 186.75 lb with shoes Heart Rate 72 /min BP Systolic Sitting 126 mmHg Rue lrg cuff BP Diastolic Sitting 86 mmHg Rue lrg cuff BP Systolic Standing 128 mmHg Rue lrg cuff BP Diastolic Standing 78 mmHg Rue lrg cuff Respiratory Rate 15 /min BMI (Body Mass Index) 31.1 kg/m2 12/03/2016 10:43am Height 65 inches 5'5" Weight 187.25 lb with shoes Heart Rate 70 /min BP Systolic Sitting 136 mmHg Rue reg cuff BP Diastolic Sitting 86 mmHg Rue reg cuff Respiratory Rate 16 /min O2 % BldC Oximetry 98 % On Ra BMI (Body Mass Index) 31.2 kg/m2 Neck Circumference in inches 16 12/02/2016 2:53pm Height 65 inches 5'5" Weight 180.00 lb no shoes Heart Rate 78 /min BP Systolic 130 mmHg Rue reg cuff BP Diastolic 78 mmHg Rue reg cuff BP Systolic Sitting 126 mmHg Lue reg cuff BP Diastolic Sitting 76 mmHg Lue reg cuff BP Systolic Standing 124 mmHg Lue reg cuff BP Diastolic Standing 80 mmHg Lue reg cuff Respiratory Rate 14 /min BMI (Body Mass Index) 30.0 kg/m2 02/18/2016 8:46am Height 65 inches 5'5" Weight 180.00 lb Heart Rate 72 /min BP Systolic 116 mmHg BP Diastolic 80 mmHg Respiratory Rate 18 /min Body Temperature 97.5 F BMI (Body Mass Index) 30.0 kg/m2 Results Test Date Facility Test Result H/L Range Note Laboratory test 03/21/2018 [facility] Clotest SEE RESULT [address] [place] [address] [phone] Laboratory test 03/21/2018 [facility] Surgical SEE RESULT [address] [place] [address] [phone] CBC No Diff 02/22/2018 [facility] White Blood 5.1 10^3/uL N 3.5-10.[address] [place] [address] [phone] Red Blood Count 4.41 10^6/uL N 4.00-5.40 Hemoglobin 13.6 g/dL N 12.0-16.0 Hematocrit 41 % N 35-47 Mean Corpuscular Volume 92 fL N 80-97 Mean Corpuscular Hemoglobin 31 pg N 27-31 Mean Corpuscular HGB Conc 33 g/dL N 31-36 Red Cell Distribution Width 13 % N 10.5-15 Platelet Count 272 10^3/uL N 150-450 Mean Platelet Volume 9.6 fL N 7.4-10.4 Celiac Panel 02/22/2018 [facility] Tissue Transglutaminase <1.2 U/mL [address] [place] [address] [phone] Immunoglobulin A 231 mg/dL 61 - 356 Celiac Interpretation See Comment 4 Laboratory test 02/22/2018 [facility] Immunoglobulin A 223 61 - [address] (Iga) mg/dL [address] [place] [address] [phone] Transglutaminase Igg 02/22/2018 [facility] Tissue <1.2 6 & Iga [address] Transglutaminase U/[place] [address] IgA Ab [phone] Tissue Transglutaminase IgG Ab 2.1 U/mL 7 Anti Gliadin Igg And Iga 02/22/2018 [facility] Gliadin IgG < 10.0 U [address] [place], [place] [address] [phone] Gliadin IgA <10.0 U 9 Laboratory test 02/22/2018 [facility] C Reactive 4.90 mg/L N < 8.[address] [place] [address] [phone] Erythrocyte Sed Rate 10 mm/Hr N 0-14 Vitamin B6 12/08/2017 [facility] Pyridoxal 5-Phosphate 6 g/L 5-[address] [place] [address] [phone] Pyridoxic Acid <2 g/L Abnormal 3-30 11 Laboratory test 12/08/2017 [facility] Angiotensin 27 U/L 8 - [address] [place] [address] [phone] Aso (Antistreptolysin O) Titer Negative IU/mL <200 Iu/mL 13 Aldolase 4.2 U/L <7.7 14 Vitamin D, 1,25 Dihydroxy TNP () 15 Ssa/SSB Abs Igg 12/08/2017 [facility] SS-A/Ro Antibody <0.2 U [address] [place] [address] [phone] SS-B/La Antibody <0.2 U 17 Laboratory test 12/08/2017 [facility] Cyclic <15.6 U [address] [place] [address] Igg [phone] Anca AB Ser If 12/08/2017 [facility] C-Anca Negative Negative [address] [place] [address] [phone] P-Anca Negative Negative 19 Celiac Hla 12/08/2017 [facility] Hla-Dqa1 SEE BELOW [address] [place] [address] [phone] Hla-DQB1 SEE BELOW 21 Celiac Gene Pairs Present? Yes Celiac Gene Interpretation See Comment 22 Hla B27 12/08/2017 [facility] Hla B27 Negative [address] [place] [address] [phone] Hla B27 Interp See Comment 24 Laboratory test 12/08/2017 [facility] Free T4 (Free 0.61 ng/dL N 0.61-1.12 25 finding [address] Thyroxine) [place] [address] [phone] T3 Free 3.10 pg/mL N 2.5-3.9 26 Thyroperoxidase AB 0.45 IU/mL N <9 27 Vitamin B12 And 12/08/2017 [facility] Vitamin B12 177 pg/mL Low 180-914 28 Folate Serum [address] [place] [address] [phone] Folic Acid (Folate) 11.24 ng/mL >3.99 29 Laboratory test 12/08/2017 [facility] C Reactive 4.49 mg/L N < 8.01 30 finding [address] [place] [address] [phone] Creatine Kinase(CK) 89 U/L N 10-223 31 Ach Receptor Binding AB 0.00 nmol/L <=0.02 32 1 SEE RESULT BELOW Name: ROSA BANGURA : [address]: Caleb Nowak MD Acct: [id number] Unit: [id number] AGE: 42 Location: ENDO Re03/21/18 SEX: F Status: REG REF SPEC: [id number] VI: 02/12/19-[address]: Caleb Nowak MD REQ: [id number] RECD: 03/21/18 STATUS: DANTE LORD DR: Alysa Gan MD _ SOURCE: [facility]UD[facility]: ORDERED: Clotest Procedure Result Reported Site Clotest Final 03/21/18- 172 ML Clotest Positive * ML - Main Lab . END OF REPORT DEPARTMENT OF PATHOLOGY, [address] [place] [address] Taye Daugherty M.D. Director [facility] # [id number] 2 SEE RESULT BELOW Name: ROSA BANGURA : [address]: Caleb Nowak MD Acct: [id number] Unit: [id number] AGE: 42 Location: ENDO Re03/21/18 SEX: F Status: REG REF SPEC: [id number] VI: 03/21/18-[address]: Caleb Nowak MD REQ: [id number] RECD: 03/21/18 STATUS: TAB LORD DR: Alysa [...] 1027 END OF REPORT DEPARTMENT OF PATHOLOGY, [address] [place] [address] Taye Daugherty M.D. Director [facility] # [id number] 3 REFERENCE VALUE <4.0 (Negative) Test Performed by: [place] [address] 4 Negative serology. Celiac disease unlikely. However, approximately 10% of patients with celiac disease are seronegative. Also, patients who are already adhering to a gluten-free diet may be seronegative. If celiac disease is highly clinically suspected, consider HLA-DQ typing. Test Performed by: [address] [address] 5 Test Performed by: [address] [address] 6 REFERENCE VALUE <4.0 (Negative) 7 REFERENCE VALUE <6.0 (Negative) Test Performed by: [address] [address] 8 REFERENCE VALUE <20.0 (Negative) Test Performed by: [facility] - [address] [address] 9 REFERENCE VALUE <20.0 (Negative) 10 ADDITIONAL INFORMATION This test was developed and its performance characteristics determined by [facility] in a manner consistent with CLIA requirements. This test has not been cleared or approved by the U.S. Food and Drug Administration. 11 ADDITIONAL INFORMATION This test was developed and its performance characteristics determined by [facility] in a manner consistent with CLIA requirements. This test has not been cleared or approved by the U.S. Food and Drug Administration. Test Performed by: [facility] [address] 12 Test Performed by: [facility] - [address] [address] 13 Normal values may vary with age, season and geographic area. Titers above upper limits may be indicative of infection, however only a two dilution rise in titer is required to be considered significant. ASO titer will usually rise above upper limits within one week of exposure, increase to peak levels at 3-5 weeks and return to baseline level at 6-12 twelve months. 14 Test Performed by: [facility] - [address] [address] 15 1,25-Dihydroxyvitamin D, S was cancelled on 12/15/2017 at 09:34; Assay temporarily down. Specimen forwarded to [facility] Test Performed by: [facility] [place] [address] 16 REFERENCE VALUE <1.0 (Negative) 17 REFERENCE VALUE <1.0 (Negative) Test Performed by: [facility] - [address] [address] 18 REFERENCE VALUE <20.0 (Negative) Test Performed by: [facility] - [address] [address] 19 Negative for cANCA and pANCA patterns by immunofluorescence. ADDITIONAL INFORMATION This test was developed and its performance characteristics determined by [facility] in a manner consistent with CLIA requirements. This test has not been cleared or approved by the U.S. Food and Drug Administration. Test Performed by: [facility] - [address] [address] 20 RESULT: 03:01,05 REFERENCE VALUE Not Applicable 21 RESULT: 03:02,03:19 DQ Serologic Equivalent: 8,7 REFERENCE VALUE Not Applicable 22 These genes are permissive for celiac disease. The absence of HLA celiac permissive genes would make the presence of celiac disease unlikely. However, these genes can also be present in the normal population. ADDITIONAL INFORMATION Method: Molecular typing of HLA antigens performed using reverse SSOP and/or SSP methods, reported as serological equivalents and low to medium resolution molecular values. Performing Laboratory CLIA# [id number] Test Performed by: [facility] - [address] [address] 23 REFERENCE VALUE Not Applicable 24 RESULT: HLA-B27 antigen was not detected. ADDITIONAL INFORMATION Method: Flow Cytometry Performing Laboratory CLIA# [id number] Test Performed by: [facility] - [address] [address] 25 Please check labs and xrays today 26 Please check labs and xrays today 27 Please check labs and xrays today 28 Normal Range 180 to 914 Indeterminate Range 145 to 180 Deficient Range <145 29 Please check labs and xrays today 30 Please check labs and xrays today 31 Please check labs and xrays today 32 ADDITIONAL INFORMATION This test was developed and its performance characteristics determined by [facility] in a manner consistent with CLIA requirements. This test has not been cleared or approved by the U.S. Food and Drug Administration. Test Performed by: [address] [address] Procedures Date Code Description Status 03/21/2018 65154 Endoscopy Upper GI Biopsy Completed 02/08/2018 83956775 Mammogram Completed 01/20/2018 61604 Admin Of Inj Completed 12/20/2017 32913 Admin Of Inj Completed 01/15/2017 82279 Multiple Sleep Latency Or Wakefulness Testing Completed 01/14/2017 56328 Polysomnography Sleep Staging 4+ Parameters Completed 12/08/2016 53418 ECHO Transthorasic Realtime 2D W Doppler & Color Flow Completed Hosp 12/05/2016 77713 Holter Monitor Review (24 hr)dr review & interp only Completed 12/02/2016 78678 EKG Tracing & Interpretation Completed 11/25/2016 40072 EEG Recording Awake & Asleep Completed 02/23/2016 [id number] Mammogram Completed 02/20/2016 [id number] Mammogram Completed Encounters Type Date Location Provider Dx Diagnosis Office Visit 02/21/2018 [facility] Gastroenterology Kait Estrada, 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 polyarthropathy E53.8 Deficiency of other specified B group vitamins M79.7 Fibromyalgia E06.9 Thyroiditis, unspecified Z79.1 alf (current) use of non-steroidal non-inflam (Nsaid) J32.8 Other chronic sinusitis Office Visit 12/08/2017 Rheumatology Od[facility] M06.4 Inflammatory 9:00a [facility] Gilliland M.D. polyarthropathy M54.5 Low back pain M54.6 Pain in thoracic spine M79.7 Fibromyalgia R20.8 Other disturbances of skin sensation M25.569 Pain in unspecified knee E06.9 Thyroiditis, unspecified Office Visit 02/02/2017 8:15a Pulmonology And Sleep Kiley Florez, R06.83 [facility] DAVID OKEEFE, WINDOW/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 CLERK-BC R40.0 Somnolence G89.29 Other chronic pain Z72.821 Inadequate sleep hygiene Office Visit 01/10/2017 2:00p [facility] Jamie Olea R55 Syncope and Of [facility] DO FACC collapse Office Visit 12/10/2016 1:20p [facility] Jamie Olea R55 Syncope and Of [facility] DO FACC collapse Office Visit 12/03/2016 10:45a Pulmonology And Kiley Florez, R06.83 [facility] DAVID OKEEFE, WINDOW/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 CLERK-BC [facility] R40.0 Somnolence R55 Syncope and collapse Z72.821 Inadequate sleep hygiene Office Visit 12/02/2016 3:00p [facility] Jamie Dukes R55 Syncope and [facility] Lefty, DO collapse FACC Office Visit 02/18/2016 8:30a Surgical Yinka Gutierrez Unspecified lump [facility] Galan M.D. in breast Plan of Treatment Future Appointment(s):06/19/2018 9:00 am - Nurse Visit Gastroenterology at [facility] Yerwwornjfxwkmpe28/08/2019 8:45 am - Kait Estrada NP at [facility] Eutvossvnmxowudf41 /12/2019 8:40 am - Odin Gilliland M.D. at [facility]
== END 2018-04-24 15:57 | disposition left against medical advice (07) ==
LOC: ED 14:08
DX: R42 Dizziness and giddiness (principal); Z53.21 Procedure and treatment not carried out due to patient leaving prior to being seen by health care provider

== ENCOUNTER 2018-09-25 10:51 | Emergency (ER) | payer OTHER ==
[2018-09-25] MEDS ORDERED: Ibuprofen TAB* 800 MG PO ONE (11:20)
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
[2018-09-25 11:39] VITALS: BP 141/87
== END 2018-09-25 11:38 | disposition home or self-care (01) ==
LOC: ED 10:51
DX: S00.93XA Contusion of unspecified part of head, initial encounter (principal); W50.0XXA Accidental hit or strike by another person, initial encounter; Y92.219 Unspecified school as the place of occurrence of the external cause; D64.9 Anemia, unspecified; I10 Essential (primary) hypertension; J45.909 Unspecified asthma, uncomplicated; F41.9 Anxiety disorder, unspecified
CPT/HCPCS: 99281; A9270-GY

== ENCOUNTER 2019-01-27 14:53 | Emergency (ER) | payer OTHER ==
--- NOTE | 2019-01-27 15:12 | ED ---
Complex/Multi-Sys Presentation - HPI Summary HPI Summary: This pt is a 43 y/o female presenting to [facility] via EMS for palpitations and shakiness s/p drinking coffee today approximately 2 hours [employer]. Pt notes she drank 1 medium cup of coffee today and 20 minutes after she began to have symptoms of feeling like passing out, feeling out of breath, and heart racing. She describes feeling like her heart was coming out of her chest and was shaking. Pt went to [facility] and had an EKG done. EMS was called and upon their arrival pt reported hand tingling. Per EMS, blood glucose is 141. Pt has hx of anxiety and notes these symptoms are similar to her anxiety. Currently pt reports feeling better. Pt notes she has had coffee in the past and either she becomes energetic or feels like today with heart racing. The last time she had coffee was 1 month ago and did not have today's reaction. He only had a bite of a donut to eat today. Pt reports she has been to the therapist in the past and has been given breathing techniques to try. PMHx: depression, anxiety, fibromyalgia. She states she takes a "yellow" pill and one for allergies. NKDA. Pt denies any tobacco, alcohol, and drug use. However reports second hand exposure to tobacco from parents. Medications reviewed. Allergies noted. - History Of Current Complaint Hx Obtained From: Patient, EMS Onset/Duration: Sudden Onset, Still Present Timing: Constant Severity Currently: Moderate Severity Initially: Severe Aggravating Factor(s): nothing Alleviating Factor(s): nothing Associated Signs And Symptoms: Positive: SOB, Other - POSITIVE: palpitations, hands tingling, anxiety, shaking. Negative: Fever - Allergies/Home Medications Allergies/Adverse Reactions: Allergies Allergy/AdvReac Type Severity Reaction Status Date / Time No Known Allergies Allergy Verified 01/27/19 15:04 PMH/Surg Hx/FS Hx/Imm Hx Endocrine/Hematology History: Reports: Hx Anemia - STOP TAKING MEDS TWO WEEKS AGO, SEE BELOW Denies: Hx Diabetes Cardiovascular History: Denies: Hx Hypertension, Hx Pacemaker/ICD Respiratory History: Reports: Hx Asthma - PRN INHALER - HAVE NOT USED FOR AWHILE History: Reports: Other Problems/Disorders - Hx of fibroids Denies: Hx Kidney Infection, Hx Kidney Stones, Hx Renal Disease Musculoskeletal History: Reports: Hx Back Problems - intermittent, recurrent LBP Sensory History: Denies: Hx Contacts or Glasses, Hx Hearing Aid Opthamlomology History: Denies: Hx Contacts or Glasses Neurological History: Reports: Hx Nerve Disease - fibromyalgia, Other Neuro Impairments/Disorders - TBI Psychiatric History: Reports: Hx Anxiety - NO MEDICATION FOR, Hx Depression - NO MEDICATION FOR Denies: Hx Panic Disorder - Cancer History Hx Chemotherapy: No Hx Radiation Therapy: No - Surgical History Surgery Procedure, Year, and Place: Tubal Ligation. Cyst Removal, Ovary. Tummy Tuck. appendix. CERVIX - FIBROIDS REMOVED Hx Anesthesia Reactions: No - Immunization History Date of Influenza Vaccine: 11/2016 Infectious Disease History: No Infectious Disease History: Reports: Hx Hepatitis - A Denies: Hx Shingles, Hx Tuberculosis, Traveled Outside the [place] in Last 30 Days - Family History Known Family History: Positive: Hypertension - Parents , Other - CVA - Social History Alcohol Use: None Alcohol Amount: no ETOH in 2 yrs as of 04/13/2016 Hx Substance Use: No Substance Use Type: Reports: None Hx Tobacco Use: No Smoking Status (MU): Never Smoked Tobacco Have You Smoked in the Last Year: No Review of Systems Negative: Fever Positive: Palpitations Positive: Shortness Of Breath Neurological: Other - POSITIVE: shaking, near-syncope Positive: Paresthesia All Other Systems Reviewed And Are Negative: Yes Physical Exam - Summary Physical Exam Summary: Constitutional: Well-developed, Well-nourished, Alert. Tearful. Tremulous. Skin: Warm, Dry HENT: Normocephalic; Atraumatic Eyes: Conjunctiva normal Neck: Musculoskeletal ROM normal neck. (-) JVD, (-) Stridor, (-) Tracheal deviation Cardio: Rhythm regular, rate normal, Heart sounds normal; Intact distal pulses; The pedal pulses are 2+ and symmetric. Radial pulses are 2+ and symmetric. (-) Murmur Pulmonary/Chest wall: Tachypneic. (-) Respiratory distress, (-) Wheezes, (-) Rales Abd: Soft, Musculoskeletal: (-) Edema Lymph: (-) Cervical adenopathy Neuro: Alert, Oriented x3 Psych: Appears anxious. Tearful. Tremulous. Triage Information Reviewed: Yes Vital Signs On Initial Exam: Initial Vitals Temp Pulse Resp BP Pulse Ox 97.2 F 80 22 152/88 100 01/27/19 14:55 01/27/19 14:55 01/27/19 14:55 01/27/19 14:55 01/27/19 14:55 Vital Signs Reviewed: Yes Procedures - Sedation Patient Received Moderate/Deep Sedation with Procedure: No Diagnostics - Vital Signs Vital Signs Temp Pulse Resp BP Pulse Ox 01/27/19 14:55 97.2 F 80 22 152/88 100 - Laboratory Result Diagrams: 01/27/19 15:11 01/27/19 15:11 Lab Statement: Any lab studies that have been ordered have been reviewed, and results considered in the medical decision making process. Re-Evaluation - Re-Evaluation First Eval Re-Evaluation Time: 16:17 Change: Improved Comment: Pt is feelnig better. Complex Multi-Symp Course/Dx Course Of Treatment: Patient is here with what appears to be a panic attack following ingestion of caffeine. Patient's had similar reaction to caffeine in the past. Patient has an underlying anxiety disorder as well. Patient was feeling better by the time of arrival but was still symptomatic. Patient is having habitations, tingling in her hands. Patient had motor performed which was grossly unremarkable. Patient is given a Vistaril with improvement in her symptoms. Patient was educated on breathing techniques and meditation. Patient is discharged with a Vistaril prescription. - Diagnoses Provider Diagnoses: Caffeine overdose, Panic reaction Discharge ED - Sign-Out/Discharge Documenting (check all that apply): Patient Departure - Discharge home - Discharge Plan Condition: Stable Disposition: HOME Prescriptions: hydrOXYzine HCL TAB* [Atarax 25 MG TAB*] 25 mg PO BID PRN #20 tab PRN Reason: Anxiety Patient Education Materials: Panic Attack (ED) Referrals: Alysa Gan MD [Primary Care Provider] - Additional Instructions: Take your prescribed medications if you're having a panic attack like we discussed today. Please follow up with your primary care physician. Please make all follow-ups in 1-3 days unless I advise you otherwise. PLEASE RETURN TO EMERGENCY DEPARTMENT FOR ANY NEW OR WORSENING SYMPTOMS. - Billing Disposition and Condition Condition: STABLE Disposition: Home - Attestation Statements Document Initiated by Scribe: Yes Documenting Scribe: Katalina Goncalves Provider For Whom Scribe is Documenting (Include Credential): Lionel Leung MD Scribe Attestation: I, Katalina Goncalves, scribed for Lionel Leung MD on 01/27/19 at 1701. Scribe Documentation Reviewed: Yes Provider Attestation: The documentation as recorded by the marlenaibeKatalina accurately reflects the service I personally performed and the decisions made by me, Lionel Leung MD Status of Scribe Document: Viewed
[2019-01-27 15:24] LABS: ABS Basophils 0.1 10^3/ul (0-0.2); ABS Eosinophils 0.1 10^3/ul (0-0.6); ABS Lymphocytes 2.1 10^3/ul (1.0-4.8); ABS Monocytes 0.4 10^3/ul (0-0.8); ABS Neutrophils 2.1 10^3/ul (1.5-7.7); Eosinophil % 1.4 %; Hematocrit 41 % (35-47); Hemoglobin 13.8 g/dL (12.0-16.0); Lymphocyte % 43.9 %; Mean Corpuscular HGB Conc 34 g/dL (31-36); Mean Corpuscular Hemoglobin 31 pg (27-31); Mean Corpuscular Volume 92 fL (80-97); Mean Platelet Volume 9.9 fL (7.4-10.4); Nucleated Red Blood Cells % 0.1; Platelet Count 238 10^3/uL (150-450); Red Blood Count 4.43 10^6 /uL (3.70-4.87); Red Cell Distribution Width 13 % (10-15); White Blood Count 4.7 10^3/uL (3.5-10.8)
[2019-01-27] MEDS ORDERED: hydrOXYzine HCL TAB* 25 MG PO ONE (15:26)
[2019-01-27 15:34] LABS: Albumin 4.8 g/dL (3.2-5.2); Albumin/Globulin Ratio 1.8 (1-3); BUN/Creatinine Ratio 13.8 (8-20); Calcium 10.4 mg/dL (8.6-10.3); EGFR African American 120.4 (>60); EGFR Non-African American 99.5 (>60); Globulin 2.7 g/dL (2-4); Potassium 3.5 mmol/L (3.5-5.0); Total Bilirubin 0.6 mg/dL (0.2-1.0); Total Protein 7.5 g/dL (6.4-8.9)
[2019-01-27 15:55] LABS: TSH (Thyroid Stimulating Horm) 1.9 mcIU/mL (0.34-5.60)
--- OUTSIDE RECORDS SUMMARY | 2019-01-27 16:07 | XMS REPORT | Continuity of Care Document ---
:1975 External Reference #:[id number] Author Name Celine Tolbert NP Address [address] [place] [address] Care Team Providers Name Role Phone Alysa Gan M.D. - Family Medicine Care Team Information Hospital Ward Clerk Unavailable [facility] Physical Care Team Information Hospital Ward Clerk Therapy - Physical Therapy Problems Active Problems Provider Date Vitamin B-complex deficiency Alysa Gan M.D. Onset: 04/17/2018 Anxiety state Alysa Gan M.D. Onset: 04/17/2018 Fibromyalgia Aylsa Gan M.D. Onset: 04/17/2018 Social History Type Date Description Comments Sex Unknown ETOH Use Denies alcohol use Tobacco Use Start: Unknown Patient has never smoked Recreational Drug Use Never Used Drugs Smoking Status Reviewed: 05/01/18 Patient has never smoked Allergies, Adverse Reactions, Alerts Description No Known Drug Allergies Medications Active Medications SIG Qnty Indications Ordering Date Provider Venlafaxine HCL 1 by mouth every day Unknown 75mg Tablets Cyanocobalamin inject 1ml Unknown intramuscularly once a 1000mcg/ML Solution month Albuterol Sulfate HFA inhale two puffs by Unknown mouth every 4 hours as 108(90Base) mcg/Act needed Aerosol Ibuprofen 1 tab by mouth every 4 Unknown 600mg Tablets hours as needed pain. take with food Nausea Med Unknown Cymbalta 1 by mouth bid Unknown 30mg Caps DR Part Immunizations Description No Information Available Vital Signs Date Vital Result Comment 11/29/2018 6:15pm BP Systolic 142 mmHg BP Diastolic 86 mmHg Heart Rate 80 /min Body Temperature 97.3 F Height 64 inches 5'4" Weight 185.00 lb BMI (Body Mass Index) 31.8 kg/m2 05/01/2018 12:59pm BP Systolic 124 mmHg BP Diastolic 60 mmHg Heart Rate 96 /min Body Temperature 97.7 F Respiratory Rate 16 /min Height 64 inches 5'4" Weight 188.25 lb BMI (Body Mass Index) 32.3 kg/m2 Results Description No Information Available Procedures Date Code Description Status 02/08/2018 [id number] Mammogram Completed 02/23/2016 [id number] Mammogram Completed Medical Devices Description No Information Available Encounters Description No Information Available Assessments Date Code Description Provider 11/29/2018 K43.2 Incisional hernia without obstruction or Celine Tolbert NP gangrene 11/29/2018 Z23 Encounter for immunization Celine Tolbert NP Plan of Treatment 11/29/2018 - Celine Tolbert NPK43.2 Incisional hernia without obstruction or gangreneComments:I recommend you follow-up with a general surgeon. In the mean time, an abdominal binder may help youfeel more comfortable.Z23 Encounter for immunizationComments:Your flu vaccination has been administered. This protects you for the fall, winter and spring. It will decrease the likelihood that you will get the flu. If you are unlucky and get the flu, the symptoms will be less severe.AllComments:1. Patient has been queried about patient's goals/preferences and functional/lifestyle goals at relevant visits. If relevant, describe: Has been discussed, noted above2. Treatment goals as explainedto the patient: see above3. Are there barriers to meeting treatment goals? Yes If Yes, please describe: Barriers include possible insurance limits, disease process, and difficulty with lifestyle changes4. Self- Management goals as described to the patient: Yes, see above As always, we strongly encourage a healthy diet and making physical activity a part of your every day life. If you have questions about how or where to start, please contact the office. Functional Status Description No Information Available Mental Status Description No Information Available Referrals Description No Information Available
--- OUTSIDE RECORDS SUMMARY | 2019-01-27 16:07 | XMS REPORT | Continuity of Care Document ---
:1975 External Reference #:[id number] Author Name Jamie Valle MD, FACS (transmitted by agent of provider Karyna Pimentel) Address [address] [place] [id number] Care Team Providers Name Role Phone Alysa Gan MD - Family Care Team Information Forensic Science Examiner [phone] Medicine Problems Active Problems Provider Date Difficulty breathing Kiley Florez DNP, RN, USABILITY STRATEGIST-BC Onset: 12/03/2016 Disturbance of consciousness Kiley Florez DNP, RN, DAVID-KRISTINE Onset: 2016 Inadequate sleep hygiene Kiley Florez DNP, RN, USABILITY STRATEGIST-BC Onset: 12/03/2016 Drug-induced dyspepsia Kait Estrada NP Onset: 02/21/2018 Gastroesophageal reflux disease Kait Estrada NP Onset: 02/21/2018 Helicobacter pylori Kait Estrada NP Onset: 04/17/2018 Note: took Prevpac Social History Type Date Description Comments Sex Unknown Tobacco Use Start: Unknown Never Smoked Cigarettes ETOH Use Denies alcohol use Tobacco Use Start: Unknown Patient has never smoked Recreational Drug Use Denies Drug Use Tobacco Use Start: Unknown Second hand smoke Parents smoked Smoking Status Reviewed: 12/11/18 Second hand smoke Parents smoked Exercise Type/Frequency Does not exercise Allergies, Adverse Reactions, Alerts Description No Known Drug Allergies Medications Active Medications SIG Qnty Indications Ordering Date Provider Sulfasalazine Take 1 Twice Daily 60tabs M06.4 Odin Gilliland, 08/11/2018 500mg Ongoing M.D. Tablets Omeprazole 1 by mouth every day 30tabs Kait Estrada, 02/28/[address] Dexilant take one daily 30caps Kaitviktoria Estrada, 02/27/2018 60mg Capsules PIN PUSHER Venlafaxine HCL Take 2 Daily 60tabs M06.4 Odin Raedor, 02/16/2018 37.5mg M.D. Tablets Fluticasone instill 1 spray each 16units Odin Raedor, 02/15/2018 Propionate nostril every day M.D. 50mcg/Act Suspension BD 1ML for use with b12 42units Odin Gilliland, 02/14/2018 Syringe/Safetyglide injections M.D. Shielding Needle 25G X 5/8" 25G X 5/8" 1 ML Misc Cyanocobalamin 1 milliliters 30ml Oidn Talat, 12/20/2017 intramuscular M.DPratik 1000mcg/ML Solution [id number] x 12 months Tylenol 2 tablets every 4 Unknown 325mg Capsules hours as needed for pain Medications Administered in Office Medication SIG Qnty Indications Ordering Provider Date B-12 Injection Nurse Visit 01/20/2018 Injection B-12 Injection Nurse Visit 12/20/2017 Injection Immunizations CPT Code Status Date Vaccine Reaction Lot # [id number] Given 12/20/2017 Influenza Virus Vaccine, no immediate reaction [id number] Quadrivalent, Split, noted Preservative Free Vital Signs Date Vital Result Comment 12/11/2018 11:12am Height 65 inches 5'5" Weight 185.00 lb Heart Rate 68 /min BP Systolic Sitting 118 mmHg BP Diastolic Sitting 82 mmHg Respiratory Rate 16 /min Body Temperature 96.9 F BMI (Body Mass Index) 30.8 kg/m2 08/11/2018 11:34am Height 65 inches 5'5" Weight 180.38 lb Heart Rate 69 /min BP Systolic 131 mmHg BP Diastolic 87 mmHg Body Temperature 97.5 F O2 % BldC Oximetry 98 % BMI (Body Mass Index) 30.0 kg/m2 Results Test Acquired Date Facility Test Result H/L Range Note Connective Tissue 08/11/2018 [facility] Anti-Nuclear 0.3 U [address] Antibody [place], [place] [id number] [phone] Cyclic Citrullinated Peptide <15.6 U 2 Interpretation See Comment 3 Laboratory test 08/11/2018 [facility] Erythrocyte Sed 7 mm/Hr Normal 0-19 [address] [place] [address] [phone] Creatine Kinase(CK) 91 U/L Normal 10-223 5 C Reactive Protein 3.12 mg/L Normal <8.01 6 CBC Auto 08/11/2018 [facility] White Blood 4.4 10^3/uL Normal 3.5-10.[address] [place] [address] [phone] Red Blood Count 4.41 10^6/uL Normal 3.70-4.87 Hemoglobin 13.5 g/dL Normal 12.0-16.0 Hematocrit 40 % Normal 35-47 Mean Corpuscular Volume 90 fL Normal 80-97 Mean Corpuscular Hemoglobin 31 pg Normal 27-31 Mean Corpuscular HGB Conc 34 g/dL Normal 31-36 Red Cell Distribution Width 13 % Normal 10-15 Platelet Count 225 10^3/uL Normal 150-450 Mean Platelet Volume 10.2 fL Normal 7.4-10.4 Abs Neutrophils 2.3 10^3/uL Normal 1.5-7.7 Abs Lymphocytes 1.5 10^3/uL Normal 1.0-4.8 Abs Monocytes 0.4 10^3/uL Normal 0-0.8 Abs Eosinophils 0.1 10^3/uL Normal 0-0.6 Abs Basophils 0.0 10^3/uL Normal 0-0.2 Abs Nucleated RBC 0.0 10^3/uL Granulocyte % 53.3 % Lymphocyte % 35.1 % Monocyte % 9.4 % Eosinophil % 1.7 % Basophil % 0.5 % Nucleated Red Blood Cells % 0.0 Comp Metabolic 08/11/2018 [facility] Sodium 138 mmol/L Normal 135-[address] [place] [address] [phone] Potassium 4.1 mmol/L Normal 3.5-5.0 Chloride 105 mmol/L Normal 101-111 Co2 Carbon Dioxide 27 mmol/L Normal 22-32 Anion Gap 6 mmol/L Normal 2-11 Glucose 96 mg/dL Normal 70-100 Blood Urea Nitrogen 12 mg/dL Normal 6-24 Creatinine 0.56 mg/dL Normal 0.51-0.95 BUN/Creatinine Ratio 21.4 High 8-20 Calcium 9.8 mg/dL Normal 8.6-10.3 Total Protein 6.8 g/dL Normal 6.4-8.9 Albumin 4.3 g/dL Normal 3.2-5.2 Globulin 2.5 g/dL Normal 2-4 Albumin/Globulin Ratio 1.7 Normal 1-3 Total Bilirubin 0.40 mg/dL Normal 0.2-1.0 Alkaline Phosphatase 71 U/L Normal 34-104 Alt 27 U/L Normal 7-52 Ast 22 U/L Normal 13-39 Egfr Non- 118.7 >60 Egfr 143.6 >60 7 Laboratory test 08/11/2018 [facility] Thyroperoxidase AB 0.60 Normal <9 [address] IU/[place] [address] [phone] Free T4 (Free Thyroxine) 0.85 ng/dL Normal 0.61-1.12 9 Vitamin B12 08/11/2018 [facility] Vitamin B12 350 pg/mL Normal 180-914 [address] [place] [address] [phone] Folic Acid (Folate) 16.59 ng/mL >3.99 11 1 REFERENCE VALUE <=1.0 (Negative) 2 REFERENCE VALUE <20.0 (Negative) 3 Tests for antibodies to dsDNA and SANTO antigens are not performed automatically unless the KATE result is > or = 3.0 U. Studies performed at [facility] indicate that positive KATE results <3.0 U are rarely accompanied by positive second order tests. Test Performed by: [facility] [address] [place] [address] 4 Please check labs today 5 Please check labs today 6 Please check labs today 7 Because ethnic data is not always readily [...] 15-29 5 Kidney failure <15 (or dialysis) 8 Please check labs today 9 Please check labs today 10 Normal Range 180 to 914 Indeterminate Range 145 to 180 Deficient Range <145 11 Please check labs today Procedures Date Code Description Status 02/08/2018 [id number] Mammogram Completed 02/23/2016 [id number] Mammogram Completed 02/20/2016 [id number] Mammogram Completed Medical Devices Description No Information Available Encounters Type Date Location Provider Dx Diagnosis Office Visit 08/11/2018 [facility] Odin Gilliland 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 08/11/2018 B96.81 Helicobacter pylori [H. pylori] as the Odin Gilliland M.D. cause of diseases cla 08/11/2018 Z79.899 Other longterm (current) drug therapy Odin Gilliland M.D. 08/11/2018 R53.83 Other fatigue Odin Gilliland M.D. 08/11/2018 E53.8 Deficiency of other specified B group Odin Gilliland M.D. vitamins 08/11/2018 M54.5 Low back pain Odin Gilliland M.D. Plan of Treatment 12/11/2018 - Jamie Valle MD, FACSR10.32 Left lower quadrant painNew Labs: Blood Urea Nitrogen BUN, Ordered: 12/11/18Creatinine, Ordered: 12/11/18New Xrays :CT Abd/Pel W, Scheduled: 12/22/18Follow up:After CAT scan Functional Status Description No Information Available Mental Status Description No Information Available Referrals Description No Information Available
--- OUTSIDE RECORDS SUMMARY | 2019-01-27 16:07 | XMS REPORT | Continuity of Care Document ---
:1975 External Reference #:[id number] Author Name Jamie Valle MD, FACS (transmitted by agent of provider Angel Hensley) Address [address] [place] [phone] Care Team Providers Name Role Phone Alysa Gan MD - Family Care Team Information Banking Services Clerk [phone] Medicine Problems Active Problems Provider Date Difficulty breathing Kiley Florez DNP, RN, ARCHITECTURAL INSPECTOR-BC Onset: 12/03/2016 Disturbance of consciousness Kiley Florez DNP, RN, DAVID-BC Onset: 2016 Inadequate sleep hygiene Kiley Florez DNP, RN, ARCHITECTURAL INSPECTOR-BC Onset: 12/03/2016 Drug-induced dyspepsia Kait Estrada NP [...] hand smoke Parents smoked Smoking Status Reviewed: 01/25/19 Second hand smoke Parents smoked Exercise Type/Frequency Does not exercise Allergies, Adverse Reactions, Alerts Description No Known Drug Allergies Medications Active Medications SIG Qnty Indications Ordering Date Provider Sulfasalazine Take 1 Twice Daily 60tabs M06.4 Odin Gilliland, 08/11/2018 500mg Ongoing M.D. Tablets Omeprazole 1 by mouth every day 30tabs Kait Estrada, 02/28/2018 20mg Tablets [employer] [address] Dexilant take one daily 30caps Kait Natalie, 02/27/2018 60mg Capsules [employer]ER Venlafaxine HCL Take 2 Daily 60tabs M06.4 Odin Raedor, 02/16/2018 37.5mg M.D. Tablets Fluticasone instill 1 spray each 16units Odin Raedor, 02/15/2018 Propionate nostril every day M.D. 50mcg/Act Suspension BD 1ML for use with b12 42units Odin Talat, 02/14/2018 Syringe/Safetyglide injections M.D. Shielding Needle 25G X 5/8" 25G X 5/8" 1 ML Misc Cyanocobalamin 1 milliliters 30ml Odin Talat, 12/20/2017 intramuscular M.DPratik 1000mcg/ML Solution [id number] x 12 months Tylenol 2 tablets every 4 Unknown 325mg Capsules hours as needed for pain Medications Administered in Office Medication SIG Qnty Indications Ordering Provider Date B-12 Injection Nurse Visit 01/20/2018 Injection B-12 Injection Nurse Visit 12/20/2017 Injection Immunizations CPT Code Status Date Vaccine Reaction Lot # [id number] Given 12/20/2017 Influenza Virus Vaccine, no immediate reaction [id number] Quadrivalent, Split, noted Preservative Free Vital Signs Date Vital Result Comment 01/25/2019 9:57am Heart Rate 72 /min BP Systolic 124 mmHg BP Diastolic 80 mmHg Respiratory Rate 16 /min Body Temperature 97.4 F 12/11/2018 11:12am Height 65 inches 5'5" Weight 185.00 lb Heart Rate 68 /min BP Systolic Sitting 118 mmHg BP Diastolic Sitting 82 mmHg Respiratory Rate 16 /min Body Temperature 96.9 F BMI (Body Mass Index) 30.8 kg/m2 Results Test Acquired Date Facility Test Result H/L Range Note Connective Tissue 08/11/2018 [facility] Anti-Nuclear 0.3 U [address] [place] [address] [phone] Cyclic Citrullinated Peptide <15.6 U 2 Interpretation See Comment 3 Laboratory test 08/11/2018 [facility] Erythrocyte Sed 7 mm/Hr Normal 0-19 [address] [place] [address] [phone] Creatine Kinase(CK) 91 U/L Normal 10-223 5 C Reactive Protein 3.12 mg/L Normal <8.01 6 CBC Auto 08/11/2018 [facility] White Blood 4.4 10^3/uL Normal 3.5-10.[address] [place] [address] [phone] Red Blood Count 4.41 10^6/uL Normal 3.70-4.87 [...] Blood Cells % 0.0 Comp Metabolic 08/11/2018 [facility] Sodium 138 mmol/L Normal 135-[address] [place] [address] [phone] Potassium 4.1 mmol/L Normal 3.5-5.0 Chloride 105 [...] Egfr 143.6 >60 7 Laboratory test 08/11/2018 [facility] Thyroperoxidase AB 0.60 Normal <9 [address] IU/[place] [address] [phone] Free T4 (Free Thyroxine) 0.85 ng/dL Normal 0.61-1.12 9 Vitamin B12 08/11/2018 [facility] Vitamin B12 350 pg/mL Normal 180-914 10 [address] Folate [address] [place] [address] [phone] Folic Acid (Folate) 16.59 ng/mL >3.99 11 1 REFERENCE VALUE <=1.0 (Negative) 2 REFERENCE VALUE <20.0 (Negative) 3 Tests for antibodies to dsDNA and SANTO antigens are not performed automatically unless the KATE result is > or = 3.0 U. Studies performed at [facility] indicate that positive KATE results <3.0 U are rarely accompanied by positive second order tests. Test Performed by: [facility] [address] [place] [address] 4 Please check labs today 5 Please [...] today Procedures Date Code Description Status 02/08/2018 [id number] Mammogram Completed 02/23/2016 [id number] Mammogram Completed 02/20/2016 [id number] Mammogram Completed Medical Devices Description No Information Available Encounters Type Date Location Provider Dx Diagnosis Office Visit 01/25/2019 [facility] Jamie Edmondson R10.32 Left lower quadrant 10:00a Of Wendi Valle MD, pain FACS Office Visit 12/11/2018 [facility] Jamie Edmondson R10.32 Left lower quadrant 11:00a Of Wendi Valle MD, pain FACS Office Visit 08/11/2018 Rheumatology Ilda Perez6.4 Inflammatory 11:20a [facility] Wendi Ratliff polyarthropathy B96.81 Helicobacter [facility] as the cause [facility] diseases [facility] Z79.899 Other penitentiary (current) drug therapy R53.83 Other fatigue E53.8 Deficiency of other specified B group vitamins M54.5 Low back pain Assessments Date Code Description Provider 01/25/2019 R10.32 Left lower quadrant pain Jamie Valle MD, FACS 12/11/2018 R10.32 Left lower quadrant pain Jamie Valle MD, FACS 08/11/2018 M06.4 Inflammatory polyarthropathy Odin Gilliland M.D. 08/11/2018 B96.81 Helicobacter pylori [H. pylori] as the Odin Gilliland M.D. cause of diseases cla 08/11/2018 Z79.899 Other penitentiary (current) drug therapy Odin Gilliland M.D. 08/11/2018 R53.83 Other fatigue Odin Gilliland M.D. 08/11/2018 E53.8 Deficiency of other specified B group Odin Gilliland M.D. vitamins 08/11/2018 M54.5 Low back pain Odin Gilliland M.D. Plan of Treatment 01/25/2019 - Jamie Valle MD, FACSR10.32 Left lower quadrant painFollow up: None needed Functional Status Description No Information Available Mental Status Description No Information Available Referrals Description No Information Available
[2019-01-27 16:29] VITALS: BP 142/86
== END 2019-01-27 16:27 | disposition home or self-care (01) ==
LOC: ED 14:53
DX: T43.611A Poisoning by caffeine, accidental (unintentional), initial encounter (principal); Y92.9 Unspecified place or not applicable; F43.0 Acute stress reaction; J45.909 Unspecified asthma, uncomplicated
CPT/HCPCS: 36415; 80053; 84443; 85025; 99282; A9270-GY